=== PATIENT | female | born 1950 | race Caucasian/White ===

== ENCOUNTER → 2019-11-19 11:25 | Outpatient (BNVA) | payer MEDICARE, SELFPAY | PROVIDERS: Family Provider Nurse Practitioner Family; PCP Nurse Practitioner Family; Visit Provider Registered Nurse | DX: E03.9 Hypothyroidism, unspecified (principal); E11.8 Type 2 diabetes mellitus with unspecified complications | CPT/HCPCS: 83036; 84443 ==

== ENCOUNTER → 2020-05-16 10:18 | Outpatient (BNVA) | payer MEDICARE, SELFPAY | PROVIDERS: Family Provider Nurse Practitioner Family; PCP Nurse Practitioner Family; Visit Provider Registered Nurse | DX: E03.9 Hypothyroidism, unspecified (principal); E11.9 Type 2 diabetes mellitus without complications | CPT/HCPCS: 80061; 83036; 84443; 85025 ==

== ENCOUNTER → 2021-05-03 10:10 | Outpatient (BNVA) | payer MEDICARE, SELFPAY | PROVIDERS: Family Provider Nurse Practitioner Family; PCP Nurse Practitioner Family; Visit Provider Registered Nurse | DX: E11.9 Type 2 diabetes mellitus without complications (principal); E03.9 Hypothyroidism, unspecified | CPT/HCPCS: 80053; 80061; 83036; 85025 ==

== ENCOUNTER 2021-07-09 16:17 | Emergency (ER) | payer MEDICARE, SELFPAY ==
[2021-07-09 16:23] VITALS: BP 158/88; PULSE 87; RESP 18; TEMP 37.2; O2SAT 95; BMI 38.9
--- NOTE | 2021-07-09 16:26 | W.ED.WEAKNES ---
HPI - Weakness General: Chief complaint: General Medical Stated complaint: weakness Time Seen by Provider: 07/09/21 16:26 History of Present Illness: HPI Narrative: Ms. Wood is a 71-year-old lady with significant past medical history of hypertension, hyperlipidemia, thyroid disorder, CHF, diabetes who presents emergency department due to generalized fatigue and diarrhea. Symptom onset started with a sore throat and mild cough approximately 3 weeks ago. This resolved however she has continued to have fairly significant generalized malaise and weakness. She describes her symptoms as having lost my energy . The course has persisted. She has decreased p.o. intake and frequent episodes of watery diarrhea. No associated abdominal pain, she does have mild nausea, no vomiting, and fevers that typically occur in the evening respond to [id number]-yzvoyzs medications otherwise denies infectious symptoms. Symptoms are moderate to severe in intensity and have continued. Worse with exertion. No other specific exacerbating or alleviating factors. Review of Systems General: Reports: 10 or more systems reviewed and unremarkable except in HPI and below PFSH ED PFSH: Medical History Type 2 diabetes mellitus Social History Smoking and tobacco status: never smoked Physical Exam Narrative: EXAM NARRATIVE: GENERAL/CONSTITUTIONAL -mildly ill-appearing. No acute distress. Eyes - PERRL, no conjunctival injection ENMT - Atraumatic external nose and ears. Moist mucous membranes NECK - supple. trachea midline CARDIOVASCULAR - regular rate and rhythm. RESPIRATORY -clear to auscultation bilaterally. ABDOMEN/GI - Nontender/Nondistended. No tenderness to percussion or evidence of peritonitis MSK - Extremities without obvious deformity or tenderness to palpation SKIN - Warm, Dry NEURO - alert and appropriately oriented. strength and sensation intact. Moves all extremities equally. Course ED course: - Patient was seen and evaluated by me at bedside - Patient placed on cardiac monitors, IV access obtained - Initial evaluation notable for mildly ill appearance, no acute distress - Labs notable for no significant hematologic abnormality. Minimal metabolic abnormalities. - Imaging notable for no acute abnormality to explain patient's symptoms - Upon serial reexamination after treatment the patient was mildly improved - Based on patient history, evaluation, labs, and imaging as interpreted the most likely cause of the patient's condition is unclear, most likely post viral nature - The results of ED evaluation were discussed with the patient including prescriptions and/or symptomatic cares (if applicable) including appropriate and responsible use, followup plan, and return precautions. The patient verbalized understanding and felt safe for discharge. - Patient discharged in satisfactory condition. Vital Signs: Vital signs: Vital Signs Temperature 98.9 F 07/09/21 16:23 Pulse Rate 78 07/09/21 18:07 Respiratory Rate 18 07/09/21 16:23 Blood Pressure 180/85 07/09/21 18:07 Pulse Oximetry 97 07/09/21 18:07 MDM - Weakness Medical Records: Attestation: I reviewed the patient's medical records. Lab Data: Attestation: I reviewed the patient's lab results. Labs: Lab Results 07/09/21 07/09/21 07/09/21 17:30 17:30 17:30 WBC 7.8 10^3/uL 10^3/ uL (4.0-10.0) RBC 4.88 10^6/uL 10^6 /uL (4.1-5.3) Hgb 14.9 g/dL g/dL (11.5-15.3) Hct 43.5 % % (37.0-47.0) MCV 89.1 fl fl (81-99) MCH 30.5 pg pg (28.0-34.0) MCHC 34.3 g/dL g/dL (30.0-36.0) RDW 12.9 % % (12.1-15.1) Plt Count 202 10^3/cmm 10^3 /cmm (130-400) MPV 10.9 fL H fL (7.4-10.4) Neut % (Auto) 79.0 % % Lymph % (Auto) 12.6 % % Sunflower % (Auto) 7.3 % % Eos % (Auto) 0.4 % % Baso % (Auto) 0.3 % % Neut # (Auto) 6.16 10^3/uL 10^3 /uL (1.8-7.7) Lymph # (Auto) 1.0 10^3/uL 10^3/ uL (0.8-4.8) Sunflower # (Auto) 0.6 10^3/uL 10^3/ uL (0.2-0.9) Eos # (Auto) 0.0 10^3/uL 10^3/ uL (0.0-0.8) Baso # (Auto) 0.0 10^3/uL 10^3/ uL (0.0-0.1) Nucleated RBC % (a uto) 0 % % Nucleated RBCs # 0.0 /100WBC /100W BC Sodium 140 mmol/L mmol/L (136-145) Potassium 4.7 mmol/L mmol/L (3.5-5.1) Chloride 105 mmol/L mmol/L (98-107) Carbon Dioxide 19 mmol/L L mmol/ L (22-29) Anion Gap 20.7 H (5-19) BUN 12 mg/dL mg/dL (8-23) Creatinine 0.5 mg/dL mg/dL (0.5-0.9) GFR Calculation Not Reportable Glucose 193 mg/dL H mg/dL (65-115) POC Glucose Calculated Osmolal ity 295 mOsm/kg mOsm/ kg (285-295) Calcium 8.3 mg/dL L mg/dL (8.5-10.5) Total Bilirubin 0.3 mg/dL mg/dL (0.15-1.2) AST 30 U/L U/L (0-32) ALT 32 U/L U/L (0-33) Alkaline Phosphata se 91 IU/L IU/L (35-105) Troponin T Baselin e 7 ng/L ng/L (0-10) Troponin T 120 Min [place] Troponin T NT-Pro-B Natriuret Pep 202 pg/mL H pg/mL (0-125) Total Protein 6.7 g/dL g/dL (6.6-8.7) Albumin 3.7 g/dL g/dL (3.5-5.2) Globulin 3.0 g/dL g/dL (1.3-4.6) TSH 3.11 uIU/mL uIU/m L (0.27-4.20) Urine Color Urine Appearance Urine pH Ur Specific Gravit y Urine Protein Urine Glucose (UA) Urine Ketones Urine Blood Urine Nitrate Urine Bilirubin Urine Urobilinogen Ur Leukocyte Flower ase 07/09/21 07/09/21 07/09/21 17:34 18:35 19:20 WBC RBC Hgb Hct MCV MCH MCHC RDW Plt Count MPV Neut % (Auto) Lymph % (Auto) Sunflower % (Auto) Eos % (Auto) Baso % (Auto) Neut # (Auto) Lymph # (Auto) Sunflower # (Auto) Eos # (Auto) Baso # (Auto) Nucleated RBC % (a uto) Nucleated RBCs # Sodium Potassium Chloride Carbon Dioxide Anion Gap BUN Creatinine GFR Calculation Glucose POC Glucose 190 mg/dL H mg/dL (70-110) Calculated Osmolal ity Calcium Total Bilirubin AST ALT Alkaline Phosphata se Troponin T Baselin e Troponin T 120 Min [place] 7.18 ng/L ng/L (0-10) Delta Troponin T 0.18 ABS# ABS# (0-10) NT-Pro-B Natriuret Pep Total Protein Albumin Globulin TSH Urine Color Yellow (Yellow) Urine Appearance Clear (CLEAR) Urine pH 5 (5-7) Ur Specific Gravit y 1.010 (1.005-1.030) Urine Protein Neg (Negative) Urine Glucose (UA) Norm (Normal) Urine Ketones Negative (Negative) Urine Blood Neg (Negative) Urine Nitrate Negative (Negative) Urine Bilirubin Neg (Negative) Urine Urobilinogen Norm mg/dL mg/dL (Negative) Ur Leukocyte Flower ase Negative (Negative) EKG Data^: EKG 1: Attestation: I personally reviewed and interpreted this EKG as follows: EKG interpretation date: 07/09/21 EKG interpretation time: 17:35 Interpretation: Twelve-lead EKG shows a regular rhythm at a rate of seventy-eight. VT interval 216, QRS duration 77, QTc 423. Normal axis. Interpretation: Sinus rhythm, first-degree AV block Discharge Plan Discharge Patient Disposition: Home Clinical Impression: Malaise and fatigue, Diarrhea Condition: Stable Prescriptions: New Zofran 4 mg tablet 4 mg PO TID Qty: 14 RF: 0 No Action amlodipine 10 mg tablet See Rx Instructions .ROUTE .COMPLEX Qty: 90 RF: 0 glipizide 10 mg tablet 10 mg PO BID 90 Days Qty: 180 RF: 4 levothyroxine [Synthroid] 125 mcg tablet 125 mcg PO DAILY Qty: 90 RF: 4 metformin 1,000 mg tablet 1,000 mg PO BID 90 Days Qty: 180 RF: 4 metoprolol tartrate 100 mg tablet 100 mg PO DAILY Qty: 90 RF: 4 (DME) lancets [BD Ultra-Fine II Lancets] 30 gauge misc See Rx Instructions .ROUTE .MEDSUPPLY Qty: 100 RF: 6 (DME) OneTouch Ultra Blue Test Strip Strip See Rx Instructions .ROUTE .MEDSUPPLY Qty: 100 RF: 6 furosemide 20 mg tablet 20 mg PO DAILY 90 Days Qty: 90 RF: 3 Discharge Orders: Discharge ED (Routine); Ordered 07/09/21 Ordered By: Berny Michaud Discharge Diet: Usual diet Discharge Activity: Resume usual activity Patient Instructions: Acute Diarrhea (ED), Fatigue (ED) Activity Restrictions/Additional Instructions: Thank you for visiting the emergency department. You were seen and evaluated for decreased energy and diarrhea. The exact cause of your symptoms is unclear. Please follow-up with your primary care provider. Please return to the emergency department for anything that you are concerned about and feel needs emergency department evaluation. Incidental CT findings as noted: 1. Some interval increase in size of the fat containing mass within the right kidney now measuring 6.3 x 3.6 cm. This likely represents an angiomyolipoma. 2. Similar appearance of a 1.7 cm low-attenuation lesion within the uncinate process of the pancreas. This most likely represents a serous cystadenoma or side branch IPMN. Coding Level of Care Code ED Director Database for Manda Gutierrez
--- NOTE | 2021-07-09 16:55 | XRR_ITS ---
PROCEDURE INFORMATION: Exam: XR Chest Exam date and time: 07/09/2021 4:55 PM Age: 71 years old Clinical indication: Shortness of breath; Additional info: Fatigue, SOB TECHNIQUE: Imaging protocol: XR of the chest. Views: 1 view. COMPARISON: CT chest w con* [id number] 06/06/2018 9:06 PM FINDINGS: Lungs: Patulous areas of parenchymal scarring. No consolidation. Pleural spaces: No pleural effusion. No pneumothorax. Heart/Mediastinum: No cardiomegaly. Bones/joints: Moderate degenerative changes of the acromioclavicular joints. XR/XR chest 1V portable [id number] IMPRESSION: No acute findings. Radiation Dose CTDIVOL = (mGy): DLP = (mGy-cm)
--- NOTE | 2021-07-09 16:56 | ECG_ITS ---
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 Measurements Intervals [place] Rate: 78 P: 86 NE: 216 QRS: 29 QRSD: 77 T: 44 QT: 371 QTc: 423 Interpretive Statements SINUS RHYTHM WITH FIRST DEGREE AV BLOCK LOW QRS VOLTAGE IN PRECORDIAL LEADS [QRS DEFLECTION < 1.0 mV IN CHEST LEADS] Compared to ECG 06/08/2018 09:40:04 First degree AV block now present Low QRS voltage now present Electronically Signed On 07-09-2021 23:09:02 CDT by Josafat Boyce M.D. [id number] f
[2021-07-09] MEDS: sodium chloride 0.9% 500 ML IV (17:30)
[2021-07-09 17:37] VITALS: BP 151/78; PULSE 79; O2SAT 95
[2021-07-09 17:38] LABS: Glucose Point of Care 190 mg/dL (70-110)
[2021-07-09 17:39] LABS: Basophils % 0.3 %; Eosinophils % 0.4 %; Hematocrit 43.5 % (37.0-47.0); Hemoglobin 14.9 g/dL (11.5-15.3); Lymphocytes % 12.6 %; Mean Corpuscular HGB Conc 34.3 g/dL (30.0-36.0); Mean Corpuscular Hemoglobin 30.5 pg (28.0-34.0); Mean Corpuscular Volume 89.1 fl (81-99); Mean Platelet Volume 10.9 fL (7.4-10.4); Monocytes # 0.6 10^3/uL (0.2-0.9); Monocytes % 7.3 %; Neutrophils # 6.16 10^3/uL (1.8-7.7); Nucleated Red Blood Cells % 0 %; Platelet Count 202 10^3/cmm (130-400); Red Blood Count 4.88 10^6/uL (4.1-5.3); Red Cell Distribution Width 12.9 % (12.1-15.1); White Blood Count 7.8 10^3/uL (4.0-10.0)
[2021-07-09 18:07] VITALS: BP 180/85; PULSE 78; O2SAT 97
[2021-07-09 18:22] LABS: Troponin(5th) Baseline 7 ng/L (0-10)
[2021-07-09 18:26] LABS: Alanine Aminotransferase 32 U/L (0-33); Albumin Level 3.7 g/dL (3.5-5.2); Alkaline Phosphatase 91 IU/L (35-105); Blood Urea Nitrogen 12 mg/dL (8-23); Calcium 8.3 mg/dL (8.5-10.5); Carbon Dioxide 19 mmol/L (22-29); Chloride 105 mmol/L (98-107); Creatinine Clr Calc Pharmacy 72.6568; Glucose 193 mg/dL (65-115); NT Pro B Type Natriuretic Pept 202 pg/mL (0-125); Osmolality Calculated 295 mOsm/kg (285-295); Sodium 140 mmol/L (136-145); Thyroid Stimulating Hormone 3.11 uIU/mL (0.27-4.20); Total Bilirubin 0.3 mg/dL (0.15-1.2); Total Protein 6.7 g/dL (6.6-8.7)
[2021-07-09 18:27] LABS: Anion Gap 20.7 (5-19); Aspartate Amino Transferase 30 U/L (0-32); Potassium 4.7 mmol/L (3.5-5.1)
--- NOTE | 2021-07-09 18:29 | CTR_ITS ---
PROCEDURE INFORMATION: Exam: CT Abdomen And Pelvis With Contrast Exam date and time: 07/09/2021 6:29 PM Age: 71 years old Clinical indication: Fever and nausea and vomiting; Additional info: Diarrhea, abdominal pain TECHNIQUE: Imaging protocol: Computed tomography of the abdomen and pelvis with contrast. Radiation optimization: All CT scans at this facility use at least one of these dose optimization techniques: automated exposure control; mA and/or kV adjustment per patient size (includes targeted exams where dose is matched to clinical indication); or iterative reconstruction. Contrast material: OMNI 300; Contrast volume: 95 ml; Contrast route: INTRAVENOUS (IV); COMPARISON: CT abdomen pelvis w con* [id number] 07/10/2018 12:34 PM RADIATION DOSE METRICS: Total DLP (mGy-cm): 1635.91 FINDINGS: Liver: Scattered lobulated low-attenuation lesions throughout the liver are again noted. Most measure simple fluid are compatible cysts. One of the low-attenuation lesions demonstrates increased attenuation in segment 7/8 measuring 2.2 cm series 2, image 11. This is unchanged from prior examination in 2018 and is therefore likely a mildly complicated cyst. Gallbladder and bile ducts: Normal. No calcified stones. No ductal dilation. Pancreas: Redemonstration of ill-defined low-attenuation lesion in the uncinate process measuring 1.7 cm series 2, image 30. This is unchanged from prior study. No pancreatic ductal dilation. Spleen: Normal. No splenomegaly. Adrenal glands: Normal. No mass. Kidneys and ureters: Some interval increase in size of a fat containing mass originating off of the anterior cortex of the right kidney measuring 6.3 x 3.6 cm (previously 4.6 x 2.8 cm). No evidence of rupture/adjacent hemoperitoneum. Scattered subcentimeter cysts are again noted within both kidneys. Stomach and bowel: No obstruction. A few scattered colonic diverticula without findings of acute diverticulitis. No mucosal thickening. Appendix: No evidence of appendicitis. Intraperitoneal space: Unremarkable. No free air. No significant fluid collection. Vasculature: Unremarkable. No abdominal aortic aneurysm. Lymph nodes: Unremarkable. No enlarged lymph nodes. Urinary bladder: Unremarkable as visualized. Reproductive: Unremarkable as visualized. Bones/joints: No acute fracture. Soft tissues: Unremarkable. CT/CT abdomen pelvis w con* [id number] IMPRESSION: 1. Some interval increase in size of the fat containing mass within the right kidney now measuring 6.3 x 3.6 cm. This likely represents an angiomyolipoma. 2. Similar appearance of a 1.7 cm low-attenuation lesion within the uncinate process of the pancreas. This most likely represents a serous cystadenoma or side branch IPMN. 3. Similar appearance of scattered cysts within the liver, some of which appear mildly complex. COMMENTS: Consistent with the [place] [employer]'s Incidental Findings Committee white paper (J Am Cristóbal Radiol 2018): Any incidental renal lesion less than 1 cm or classified as too small to characterize, or any incidental cystic renal lesion characterized as simple-appearing, is likely benign. No follow-up imaging is recommended for these lesions per consensus recommendations based on imaging criteria. Radiation Dose CTDIVOL = (mGy): DLP = 1635.91 (mGy-cm)
[2021-07-09 18:37] LABS: Add Urine Microscopic? NO; Charge for UA Resulting for Rev
[2021-07-09 18:43] LABS: Bilirubin Urine Neg (Negative); Blood Urine Neg (Negative); Glucose Urine UA Norm (Normal); Ketones Urine Negative (Negative); Leukocyte Esterase Urine Negative (Negative); Nitrate Urine Negative (Negative); Protein Urine Neg (Negative); Urine Appearance Clear (CLEAR); Urine Color Yellow (Yellow); Urobilinogen Urine Norm (Negative); pH Urine 5 (5-7)
[2021-07-09] MEDS: iohexol 300 mg/mL 100 mL Btl IV (18:46)
[2021-07-09 19:49] LABS: Troponin 5 2HR 7.18 ng/L (0-10); Troponin 5 2HR Delta 0.18 ABS# (0-10)
== END 2021-07-09 19:57 | disposition home or self-care (01) ==
PROVIDERS: Emergency Provider Emergency Medicine
DX: R53.81 Other malaise (principal); R53.83 Other fatigue; R19.7 Diarrhea, unspecified; Z79.84 Long term (current) use of oral hypoglycemic drugs; E11.9 Type 2 diabetes mellitus without complications; E78.5 Hyperlipidemia, unspecified; I11.0 Hypertensive heart disease with heart failure; I50.9 Heart failure, unspecified
CPT/HCPCS: 36415; 36416; 71045; 74177; 80053; 81003; 82962; 83880; 84443; 84484; 85025; 93005; 96360; 99284; J7040; Q9967

== ENCOUNTER → 2021-07-11 10:01 | Outpatient (BNVA) | payer MEDICARE, SELFPAY | PROVIDERS: Visit Provider Registered Nurse | DX: Z20.822 Contact with and (suspected) exposure to COVID-19 (principal); R19.7 Diarrhea, unspecified | CPT/HCPCS: 87493; 87506; 87635 ==

== ENCOUNTER → 2021-09-03 11:19 | Outpatient (BNVA) | payer MEDICARE, SELFPAY | PROVIDERS: Visit Provider Registered Nurse | DX: E11.9 Type 2 diabetes mellitus without complications (principal); I10 Essential (primary) hypertension; E55.9 Vitamin D deficiency, unspecified; E53.8 Deficiency of other specified B group vitamins; E03.9 Hypothyroidism, unspecified; U07.1 COVID-19; R06.00 Dyspnea, unspecified; M25.50 Pain in unspecified joint | CPT/HCPCS: 80053; 82306; 82607; 83036; 84443; 85025 ==

== ENCOUNTER → 2022-03-28 11:46 | Outpatient (BNVA) | payer MEDICARE, SELFPAY | PROVIDERS: Visit Provider Registered Nurse | DX: E11.9 Type 2 diabetes mellitus without complications (principal); I10 Essential (primary) hypertension; E78.5 Hyperlipidemia, unspecified; E03.9 Hypothyroidism, unspecified | CPT/HCPCS: 80053; 80061; 83036; 84443; 85025 ==

== ENCOUNTER → 2023-01-30 14:02 | Outpatient (BNVA) | payer MEDICARE, SELFPAY | PROVIDERS: PCP Registered Nurse; Visit Provider Registered Nurse | DX: E03.9 Hypothyroidism, unspecified; I10 Essential (primary) hypertension; R53.83 Other fatigue; R60.9 Edema, unspecified; E11.40 Type 2 diabetes mellitus with diabetic neuropathy, unspecified; E55.9 Vitamin D deficiency, unspecified | CPT/HCPCS: 80053; 80061; 82306; 82607; 83036; 84443; 85025 ==

== ENCOUNTER → 2023-04-22 12:00 | Outpatient (BNVA) | payer MEDICARE, SELFPAY | PROVIDERS: PCP Registered Nurse; Visit Provider Registered Nurse | DX: E11.9 Type 2 diabetes mellitus without complications (principal) | CPT/HCPCS: 83036; 85025 ==

== ENCOUNTER → 2023-07-14 14:46 | Outpatient (BNVA) | payer MEDICARE, SELFPAY | PROVIDERS: PCP Registered Nurse; Visit Provider Registered Nurse | DX: E11.9 Type 2 diabetes mellitus without complications (principal) | CPT/HCPCS: 83036 ==

== ENCOUNTER → 2023-11-05 11:03 | Outpatient (BNVA) | payer MEDICARE, SELFPAY | PROVIDERS: PCP Registered Nurse; Visit Provider Registered Nurse | DX: E11.9 Type 2 diabetes mellitus without complications (principal) | CPT/HCPCS: 83036 ==

== ENCOUNTER → 2024-01-27 16:15 | Outpatient (BNVA) | payer MEDICARE, SELFPAY | PROVIDERS: PCP Registered Nurse; Visit Provider Registered Nurse | DX: E11.9 Type 2 diabetes mellitus without complications (principal); E11.8 Type 2 diabetes mellitus with unspecified complications; E03.9 Hypothyroidism, unspecified | CPT/HCPCS: 80053; 83036; 85025 ==

== ENCOUNTER → 2024-01-30 14:24 | Outpatient (BNVA) | payer MEDICARE, SELFPAY | PROVIDERS: PCP Registered Nurse; Visit Provider Registered Nurse | DX: I50.9 Heart failure, unspecified (principal); R06.02 Shortness of breath; I50.813 Acute on chronic right heart failure; E11.9 Type 2 diabetes mellitus without complications | CPT/HCPCS: 93005 ==

== ENCOUNTER → 2024-02-02 10:51 | Outpatient (BNVA) | payer MEDICARE, SELFPAY | PROVIDERS: PCP Registered Nurse; Visit Provider Registered Nurse | DX: I50.9 Heart failure, unspecified (principal); E11.9 Type 2 diabetes mellitus without complications; R06.02 Shortness of breath; I10 Essential (primary) hypertension | CPT/HCPCS: 80048; 83880 ==

== ENCOUNTER 2024-02-20 05:44 | Outpatient (CLI) | payer MEDICARE, SELFPAY ==
--- NOTE | 2024-02-20 05:58 | USCV_ITS ---
Kate Wood Age: 73 Gender: F : 1950 Exam Date: 02/20/2024 06:19 Ordering Phys: Gutierrez Diaz SCIENTIFIC DIRECTOR Technologist: Romie Eckert Exam Location: [facility] [place] Indication: chf BP: 140 / 81 HR: 72 Rhythm: Sinus Technical Quality: Adequate MEASUREMENTS (Male / Female) Normal Values 2D ECHO LV Diastolic Diameter PLAX 4.2 cm 4.2 - 5.9 / 3.9 - 5.3 cm IVS Diastolic Thickness 0.9 cm 0.6 - 1.0 / 0.6 - 0.9 cm IVS Systolic Thickness 1.2 cm LVPW Diastolic Thickness 1.5 cm 0.6 - 1.0 / 0.6 - 0.9 cm LVPW Systolic Thickness 1.5 cm LVOT Diameter 2.0 cm LV Ejection Fraction 2D Teich 73.1 % LV Ejection Fraction MOD 2C 52.5 % LV Ejection Fraction 2C AL 54.8 % LA Diameter 3.4 cm RA Systolic Volume 4C AL 24.8 ml RA Systolic Volume 4C MOD 24.9 ml LA Sys Volume AL 30.2 cm cubed LA Sys Volume Index AL 14.0 cm cubed/m squared Aorta at Sinotubular Diameter 1.7 cm IVC Diameter 1.6 cm M-MODE LA Ao Ratio MM 1.1 AV Cusp Separation MM 1.2 cm DOPPLER AV Peak Velocity 164.3 cm/s LVOT Peak Velocity 99.0 cm/s AV Area Cont Eq vti 1.7 cm squared AV Area Cont Eq pk 1.9 cm squared MV Peak Velocity 96.0 cm/s MV Area PHT 4.5 cm squared Mitral E to A Ratio 0.8 TR Peak Velocity 223.0 cm/s TR Peak Gradient 19.9 mmHg TR Mean Velocity 176.0 cm/s TR Mean Gradient 13.5 mmHg TR Velocity Time Integral 51.2 cm PV Peak Velocity 92.5 cm/s RV Ejection Time 0.3 s FINDINGS Left Ventricle Normal left ventricular size and systolic function, EF 55% . Mild left ventricular hypertrophy. Grade I/IV diastolic dysfunction (abnormal relaxation filling pattern), normal to mildly elevated filling pressures. Right Ventricle The right ventricle is normal in size and function. Right Atrium The right atrium is normal in size. Left Atrium The left atrium is normal in size. Mitral Valve Moderate mitral annular calcification. Aortic Valve No gross abnormalities noted Tricuspid Valve Trace to mild tricuspid valve regurgitation. Estimated pulmonary artery peak systolic pressure 22 mmHg Pulmonic Valve No gross abnormalities noted Pericardium Normal pericardium without effusion. Aorta Normal ascending aorta dimension. IVC The inferior vena cava appears normal. CONCLUSIONS Normal left ventricular size and systolic function, EF 55% . Mild left ventricular hypertrophy. Grade I/IV diastolic dysfunction (abnormal relaxation filling pattern), normal to mildly elevated filling pressures. Moderate mitral annular calcification. Trace to mild tricuspid valve regurgitation. Estimated pulmonary artery peak systolic pressure 22 mmHg. There is no pericardial effusion. There are no intracardiac masses. Compared to the study from 06/07/2018, there may not be a significant change Dr Milagro Pardo MD FACC (Electronically Signed) Final Date: 21 Feb 2024 19:37 S
--- NOTE | 2024-02-20 06:41 | ECG_ITS ---
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 Interpretive Statements NAME OF STUDY: LEXISCAN SESTAMIBI STRESS TEST INDICATION: Shortness of Breath, PROCEDURE: At the baseline, the EKG revealed normal sinus rhythm with a poor R wave progression. Normal ST Ts.. The baseline heart was 75 bpm with a blood pressue of 143/75 mm of Hg Lexiscan was infused over a period of 20 seconds. A total of 0.4 milligrams of Lexiscan was infused. The stress phase was continued for a total of 5 minutes. Heart rate at the end of the stress phase was 93 bpm with a blood pressure 162/74 mm of Hg. The EKG at the peak infusion revealed no significant changes. Sestamibi was injected 20 seconds after the Lexiscan infusion. Heart rate at the end of the recovery phase was 88 bpm with a blood pressure of 154/71 mm of Hg. CONCLUSION: 1. No significant EKG changes with the LexiScan infusion 2. No LexiScan induced chest pain or cardiac arrhythmia 3. Normal blood pressure and heart rate response 4. Sestamibi/sestamibi perfusion scan pending; see separate report. Electronically Signed On 02-23-2024 22:54:13 CDT by Milagro Pardo M.D. [id number]
--- NOTE | 2024-02-20 06:41 | NMCV_ITS ---
NM opal perf SPECT r/s* [id number] Kate Wood Age: 73 Gender: F : 1950 Exam Date: 02/20/2024 06:41 Ordering Phys: Gutierrez Diaz CRYPTOZOOLOGIST Technologist: CLEOPATRA Grande Exam Location: [facility] Indications: SHORTNESS OF BREATH STRESS TEST Please see separate stress test report in [facility] for full findings IMAGE PROTOCOL Rest/Stress 1 Lexiscan Day Radiopharmaceutical Dose (mCi) Administration Site Administered by Rest: Tc-99m 10.8 IV CLEOPATRA Bautista Sestamibi Stress:Tc-99m 33.0 IV CLEOPATRA Bautista Sestamibi Rest: 20-Feb-2024 60 Discovery 630 Stress: 20-Feb-2024 30 Discovery 630 0.4mg Lexiscan. Supine position only as patient was unable to lay prone. SPECT RESULTS Technical Quality: Excellent Raw Data Analysis: Normal Image Corrections: No attenuation or motion correction applied Summed Stress Score: 0 Summed Rest Score: 0 Summed Difference Score: 0 PERFUSION FINDINGS Uniform myocardial tracer uptake with no significant perfusion abnormalities FUNCTIONAL RESULTS (calculated via Gated SPECT) Stress Image LV EF (%): 83 Stress EDV (mL):46 TID: 0.95 Stress ESV (mL):8 FUNCTIONAL FINDINGS: Segmental wall motion analysis revealing no gross wall motion abnormalities IMPRESSIONS 1. Uniform myocardial tracer uptake with no significant perfusion abnormalities. 2. Normal LV ejection fraction of 83%. 3. LV wall motion analysis revealing no gross wall motion abnormalities. 4. Normal LV volume Low probability for coronary ischemia, based on the above findings Compared to the study from 07/21/2018, current study shows no evidence of ischemia Dr Milagro Pardo MD FACC (Electronically Signed) Final Date: 20 Feb 2024 10:53 S
[2024-02-20 07:51] VITALS: BMI 38.7
[2024-02-20 09:15] VITALS: BP 163/75; PULSE 97
== END 2024-02-20 05:45 | disposition home or self-care (01) ==
LOC: RAD 05:53 → CDL 06:39
PROVIDERS: PCP Registered Nurse; Visit Provider Registered Nurse
DX: I50.9 Heart failure, unspecified (principal)
CPT/HCPCS: 36415; 78452; 93017; 93306; 96374; A9500

== ENCOUNTER → 2024-02-24 13:58 | Outpatient (BNVA) | payer MEDICARE, SELFPAY | PROVIDERS: PCP Registered Nurse; Visit Provider Registered Nurse | DX: N39.0 Urinary tract infection, site not specified (principal); E03.9 Hypothyroidism, unspecified | CPT/HCPCS: 81000; 84443; 87086 ==

== ENCOUNTER → 2024-04-15 11:56 | Outpatient (BNVA) | payer MEDICARE, SELFPAY | PROVIDERS: PCP Registered Nurse; Visit Provider Nurse Practitioner Family | DX: L98.9 Disorder of the skin and subcutaneous tissue, unspecified (principal) | CPT/HCPCS: 88305 ==

== ENCOUNTER → 2024-04-29 14:47 | Outpatient (BNVA) | payer MEDICARE, SELFPAY | PROVIDERS: PCP Registered Nurse; Visit Provider Nurse Practitioner Family | DX: L98.0 Pyogenic granuloma (principal); L91.8 Other hypertrophic disorders of the skin; L82.1 Other seborrheic keratosis; L73.8 Other specified follicular disorders; D22.5 Melanocytic nevi of trunk | CPT/HCPCS: 17110; 99203 ==

== ENCOUNTER → 2024-07-21 15:01 | Outpatient (BNVA) | payer MEDICARE, SELFPAY | PROVIDERS: PCP Registered Nurse; Visit Provider Registered Nurse | DX: E11.9 Type 2 diabetes mellitus without complications (principal) | CPT/HCPCS: 80048; 83036 ==

== ENCOUNTER → 2024-08-10 15:23 | Outpatient (BNVA) | payer MEDICARE, SELFPAY | PROVIDERS: PCP Registered Nurse; Visit Provider Nurse Practitioner Family | DX: L91.8 Other hypertrophic disorders of the skin (principal); L40.0 Psoriasis vulgaris; L98.0 Pyogenic granuloma; L82.1 Other seborrheic keratosis; L73.8 Other specified follicular disorders; D22.5 Melanocytic nevi of trunk | CPT/HCPCS: 17110; 99214 ==

== ENCOUNTER → 2024-11-23 14:40 | Outpatient (BNVA) | payer MEDICARE, SELFPAY | PROVIDERS: PCP Registered Nurse; Visit Provider Registered Nurse | DX: E11.9 Type 2 diabetes mellitus without complications (principal); E11.43 Type 2 diabetes mellitus with diabetic autonomic (poly)neuropathy | CPT/HCPCS: 80053; 83036 ==

== ENCOUNTER 2024-12-16 14:49 | Outpatient (CLI) | payer MEDICARE, SELFPAY | END 2024-12-16 14:50 | disposition home or self-care (01) | LOC: SLEEP 14:50 | PROVIDERS: PCP Registered Nurse; Visit Provider Registered Nurse | DX: R06.09 Other forms of dyspnea (principal); U09.9 Post COVID-19 condition, unspecified | CPT/HCPCS: 94762 ==

== ENCOUNTER → 2024-12-28 15:01 | Outpatient (BNVA) | payer MEDICARE, SELFPAY | PROVIDERS: PCP Registered Nurse; Referring Provider Registered Nurse; Visit Provider Psychiatry & Neurology Neurology | DX: G56.03 Carpal tunnel syndrome, bilateral upper limbs (principal) | CPT/HCPCS: 95911 ==

== ENCOUNTER → 2025-01-25 14:06 | Outpatient (BNVA) | payer MEDICARE, SELFPAY | PROVIDERS: PCP Registered Nurse; Visit Provider Physician Assistant | DX: G56.03 Carpal tunnel syndrome, bilateral upper limbs (principal) | CPT/HCPCS: 73110; 99204 ==

== ENCOUNTER → 2025-02-23 11:25 | Outpatient (BNVA) | payer MEDICARE, SELFPAY | PROVIDERS: PCP Registered Nurse; Visit Provider Registered Nurse | DX: E11.9 Type 2 diabetes mellitus without complications (principal); E11.43 Type 2 diabetes mellitus with diabetic autonomic (poly)neuropathy | CPT/HCPCS: 83036 ==

== ENCOUNTER 2025-02-24 07:03 | Day surgery (SDC) | payer MEDICARE, SELFPAY ==
[2025-02-24] VITALS (12 sets, daily range): BP systolic 99–153; BP diastolic 52–113; PULSE 60–73; RESP 16–18; TEMP 36.1–36.7; O2SAT 93–98; BMI 38.0
--- NOTE | 2025-02-24 07:30 | W.PM.OPSUD ---
Surgery/Procedure H&P Update DATE OF PROCEDURE: February 24, 2025 DATE H&P PERFORMED: 01/25/25 H&P UPDATE INFORMATION: I have reviewed H&P completed within last 30 days, I have examined patient prior to procedure and No changes to prior documentation PREOP DIAGNOSIS: Right carpal tunnel syndrome, right cubital tunnel PRIMARY INDICATION FOR PROCEDURE: Right carpal tunnel syndrome, right cubital tunnel syndrome PLANNED PROCEDURE: Operation Date: 02/24/25 09:00 Proposed Procedures p Carpal Tunnel Release(Right) - DO olesya Manzo Cubital Tunnel Release(Right) - DO olesya Manzo Ulnar Nerve Transposition(Right) - Jimenez Ramirez DO
[2025-02-24 08:01] LABS: Glucose Point of Care 299 mg/dL (70-110)
[2025-02-24] MEDS: sodium chloride 0.9% 1,000 ML 30 ML IV (08:08)
[2025-02-24] MEDS: ketorolac 30 mg/mL INJ IVP (08:08)
[2025-02-24] MEDS: acetaminophen 1,000 MG/100 ML PIGGYBACK 400 MG IV (08:09)
--- NOTE | 2025-02-24 08:10 | ANES.PREANE2 ---
Pre-Anesthetic Assessment Height/Weight: Height 1.6 m Weight 97.522 kg Temp Pulse Resp BP Pulse Ox O2 Del Method 97.6 F 60 16 144/75 98 Room Air 02/24/25 07:41 02/24/25 07:41 02/24/25 07:41 02/24/25 07:41 02/24/25 07:41 02/24/25 07:43 Preop Diagnosis: Right carpal tunnel syndrome, right cubital tunnel Operation Date: 02/24/25 09:00 Proposed Procedures p Carpal Tunnel Release(Right) - Jimenez Ashley, DO s Cubital Tunnel Release(Right) - Jimenez [place], DO s Ulnar Nerve Transposition(Right) - Jimenez Ashley, DO Familial anesthetic complications: None Was Beta Guicho taken within 24 hours: N/A Was Clonidine taken within 24 hours: N/A Last intake: Intake Last Liquid Date 02/23/25 Last Liquid Time 22:00 Last Solid Date 02/23/25 Last Solid Time 19:00 Social No alcohol and No tobacco Airway Mallampati: Class I Dentition: false Pulmonary Asthma CV/HEM Hypertension Metabolic Diabetes Mellitus and Thyroid Disease Anesthetic Plan ASA status: 3 Anesthesia: General and Regional (specify below) Risk of > 500 ml blood loss (7ml/kg in children): No Medications/Allergies Home Medications ?Medication ?Instructions ?Recorded ?Confirmed ?Last Taken ?Type cholecalciferol (vitamin D3) 250 500 mcg PO BID 12/31/22 02/23/25 02/23/25 History mcg (10,000 unit) capsule garlic 1,000 mg capsule 1,000 mg PO BID 12/31/22 02/23/25 02/23/25 History Upright walker #1 ea 01/01/23 01/25/25 Unknown Rx albuterol sulfate 90 mcg/actuation 1 inh inhalation QID PRN shortness 01/27/24 02/23/25 Unknown Rx aerosol inhaler (ProAir HFA) of breath or wheezing #8.5 grams lancets 30 gauge #100 ea 11/23/24 01/25/25 Unknown Rx potassium chloride 20 mEq 20 meq PO DAILY 90 days #90 tabs 11/23/24 02/23/25 02/23/25 Rx tablet,extended release sitagliptin phosphate 50 mg tablet 50 mg PO DAILY E11.9 90 days #90 02/02/23/25 02/23/25 Rx tabs budesonide-formoterol HFA 160 2 inh inhalation BID 30 days #10.2 11/25/24 02/23/25 02/23/25 Rx mcg-4.5 mcg/actuation aerosol grams inhaler (Symbicort) gabapentin 100 mg capsule 100 mg PO TID 90 days #270 caps 12/03/24 02/23/25 02/23/25 Rx tramadol 50 mg tablet 50 mg PO BID PRN pain 7 days #14 01/18/25 02/23/25 Unknown Rx tabs blood sugar diagnostic (OneTouch #100 ea 02/01/25 Unknown Rx Ultra Test strips) amlodipine 10 mg tablet 10 mg PO DAILY 02/23/25 02/23/25 02/23/25 History furosemide 40 mg tablet 40 mg PO DAILY 02/23/25 02/23/25 02/23/25 History glipizide 10 mg tablet 10 mg PO BID 02/23/25 02/23/25 02/23/25 History levothyroxine 125 mcg tablet 125 mcg PO DAILY 02/23/25 02/23/25 02/23/25 History metoprolol tartrate 100 mg tablet 100 mg PO DAILY 02/23/25 02/23/25 02/23/25 History olmesartan 40 mg tablet 40 mg PO DAILY 02/23/25 02/23/25 02/23/25 History hydrocodone 5 mg-acetaminophen 325 1 tab PO Q6H PRN pain 5 days #20 02/24/25 Unknown Rx mg tablet tabs Allergies Allergy/AdvReac Type Severity Reaction Status Date / Time No Known Allergies Allergy Verified 02/23/25 13:51 Current Medications Generic Name Dose Route Start Last Admin Trade Name Freq PRN Reason Stop Dose Admin Sodium Chloride 1,000 mls @ 30 mls/hr 02/23/25 13:45 02/24/25 08:08 Sodium Chloride 0.9% IV 02/24/25 13:44 30 mls/hr .Q24H JESUS Administration PFSH Anesthesia Medical History Chronic diarrhea Type 2 diabetes mellitus Social History Smoking and tobacco/nicotine status: former use of tobacco/nicotine Alcohol intake: never Substance/Drug Use: never Adopted: No Caregiver/support person: No Lives independently: No Household members: spouse Sexually active: Yes Do you think of yourself as: Straight/Heterosexual Current gender identity: Female Data Anesthesia Cardiac Studies: Echocardiogram 02/20/24 Sestamibi Stress Test (Cardiology) 02/20/24 Anesthesia Procedures Nerve Block Nerve Block 1: Main Anesthesia: general anesthesia Time Out Performed: Yes Consent: requested by attending/covering physician Nerve block location: supraclavicular (R) Anesthesia monitors applied: pulse oximetry, EKG, BP cuff and oxygen Nerve block position: semi sitting Anesthetic Used: ropivicaine 0.5% (30 ml) and with decadron (4 mg) Ultrasound used to: recognize landmarks, visualize and ID brachial plexus and in supraclavicular region Nerve Stimulator Used?: No Interscalene/Femoral BLK: 4 stimuplex 21 g needle used for position and inplane approach, visualize local anesthetic spread and no vascular puncture identified Injection: neg aspiration of heme Patient Tolerated Procedure: well and no complications Complications: none
[2025-02-24] MEDS: insulin regular-human 100 units/1 mL 10 UNIT IVP (08:35)
[2025-02-24] MEDS: ceFAZolin 2,000 MG in sodium chloride 0.9% (plus) 50 ML 100 MG IV (08:39)
--- NOTE | 2025-02-24 09:33 | W.PM.BPON ---
Date of Procedure: 02/24/2025 Surgeon: Jimenez Ramirez DO Gas Scrubber Operator(s): Salvador Ramirez PA-C Procedure(s) performed: Right carpal tunnel release Right cubital tunnel release (ulnar nerve decompression at the elbow) Findings of the procedure(s): Patient found to have right carpal tunnel syndrome right cubital tunnel syndrome underwent procedure as planned without issues or complications. Patient's elbow was taken through range of motion and the nerve stayed in good position. As result nerve was released in situ and no transposition was performed. Estimated blood loss: 5 mL Specimen(s) removed: None Post-operative diagnosis: Right carpal tunnel syndrome, right cubital tunnel syndrome
--- NOTE | 2025-02-24 09:35 | PM.OP ---
Operative Report Date of procedure: February 24, 2025 Surgeon: Jimenez Ramirez DO Senior Software Qa Analyst: Salvador Ramirez PA-C: PA was necessary for assistance in this case with hand positioning to execute the procedure, retraction and protection of neurovascular structures as well as to assist with wound closure and dressing application. Procedure: Preoperative diagnosis: Right carpal tunnel syndrome Right cubital tunnel syndrome Postop Diagnosis: Same Procedure done: Right carpal tunnel release Right?cubital tunnel tunnel release (ulnar nerve decompression at elbow) Surgeon: Jimenez Ramirez DO Estimated blood loss: 5 mL Tourniquet? 17 minutes IV fluids: 900 mL Complications: None Findings: See operative report narrative Condition: stable Disposition: same day Brief History: Patient's been seen and worked up in the outpatient setting and findings consistent with preoperative diagnosis.? Patient has right carpal tunnel syndrome as well as right?cubital tunnel syndrome which has been worked up in the outpatient setting has physical exam findings consistent with this as well as confirmatory nerve conduction/EMG nerve conduction study consistent with diagnosis of carpal tunnel syndrome and consistent physical exam findings for cubital tunnel syndrome..? Patient's failed conservative treatment.? As result through shared decision making agreed to proceed with? right carpal tunnel and right?cubital tunnel release with possible nerve transposition . we talked about treatment options as far as nonoperative and operative intervention.? Understands risk benefits complication alternatives surgical nonsurgical treatment options.? Understanding risks pt agrees to proceed with surgical intervention today.? Consent obtained in preoperative holding area. Procedure: Patient seen evaluate in the preoperative holding area.? Consent was reviewed and signed with patient.? Correct extremity marked.? Patient seen evaluated by anesthesia department once cleared for surgery was then taken back to the operative suite placed in supine position all bony prominences well-padded patient properly secured to bed.? right upper extremity placed onto armboard.? Nonsterile tourniquet applied right upper arm.? Patient then underwent anesthesia per the anesthesia department.? Patient's right upper extremity was then prepped and draped in standard orthopedic fashion.? Final timeout performed.? Patient received appropriate preoperative antibiotics. Esmarch was used exsanguinate the right upper extremity.? Tourniquet was insufflated to 250 mmHg. I started with the carpal tunnel release first.? I made a standard open carpal tunnel release starting with the distal most extent in the palm at the Vyas's cardinal line and the incision line was made in line with the fourth ray and ended just distal to the wrist crease.? Sharp scalpel incision was made through skin and subcutaneous tissue I then utilizing self retainer then began to dissect with dissection scissors split longitudinally the palmar fascia.? Next I then utilizing my shipping and receiving assistant Yessenia retractors subsequently utilizing scalpel feathered through the palmaris brevis as well as through the transverse carpal ligament distally.? Once I encountered the floor of the transverse carpal ligament and entered into the carpal tunnel I then switched to dissection scissors.? Carefully released the distal extent of the transverse carpal ligament to the palmar fat.? Care was to protect the recurrent branch and not injured this during this part of the case.? Next I then placed a [place] underneath the transverse carpal ligament proximally to protect the nerve in the carpal tunnel contents.? And then I subsequently under loupe magnification utilize my dissection scissors to release the transverse carpal ligament into the antebrachial fascia under direct visualization with care to keep my scissors with a curved ulnarly away from the palmar cutaneous branch.? The transverse carpal was then completely decompressed proximally and a [place] was then placed both distally and proximally throughout the carpal tunnel and had complete decompression of the nerve.? The nerve did appear to have hourglass shape as it went through the carpal tunnel.? With significant irritation noted around the nerve.? No masses were noted within the contents of the carpal tunnel.? This completed the carpal tunnel release and then I subsequently irrigated the wound bed and placed a wet Ray-Karoline into the incision for later closure. Next marked out the landmarks of the right elbow of the medial epicondyle and olecranon and made a curvilinear incision following the course of the ulnar nerve at the medial aspect of the elbow.? Sharp scalpel incision was made through skin and subcutaneous tissue.? Next I switched to Littler dissection scissors and spread in plane of the medial antebrachial cutaneous nerve branching which was protected throughout this part of the dissection.? Then I directly came down over the fascia and identified the 2 heads of the FCU fascia and split this right in the middle and subsequently identified my ulnar nerve distally.? This was then completely released distally under direct visualization and loupe magnification.? Once the nerve was then identified I then subsequently tracked this proximally and released this through Molina's ligament as well as complete decompression of the nerve proximally all the way past the intermuscular septum.? This was released to its entirety with blunt dissection proximally to confirm no tight bands or entrapment along the ulnar nerve proximally. The nerve was completely released and decompressed both proximally and distally.? Ulnar nerve neurolysis performed and completed both proximally and distally with dissection scissors.? I then took the elbow through range of motion and there was no instability/ subluxating of the ulnar nerve.? This completed?cubital tunnel release.? ?Next the wound bed was thoroughly irrigated.? Tourniquet was deflated.? Hemostasis was satisfactory at the?cubital tunnel release surgery site. I then inspected the carpal tunnel incision and this was found to have satisfactory hemostasis and all this was maintained through bipolar electrocautery.? At this point time I sequentially closed?cubital tunnel site with 3-0 Vicryl suture in a running horizontal mattress nylon stitch.? ? The carpal tunnel release surgery was then closed in standard interrupted mattress fashion.? Dressing was Xeroform 4 x 4's ABD Curlex soft roll and an Francisco wrap has a bulky soft dressing. Patient was then awakened from anesthesia and taken to PACU in stable condition. Disposition: Patient taken to PACU in stable condition recovering well.? Patient will receive appropriate discharge instructions as well as pain medication postoperatively.? We will follow-up with me in the office in 2 weeks.? Patient understands agrees with current plan.? All questions answered.? Patient understands if any questions or concerns and contact the office for follow-up appointment.
--- NOTE | 2025-02-24 10:16 | PM.PACU ---
PACU note Narrative: Patient is a 74-year-old female just underwent a right carpal tunnel and right cubital tunnel release. Patient transferred to PACU in stable condition. Pain is well controlled. Dressing on hand is dry and in place. Patient's fingers are warm and well-perfused. Patient can wiggle fingers. normal cap refill under 2 seconds. Sensation to fingers intact. Exam: awake Disposition: discharged
[2025-02-24] MEDS: ondansetron 2 mg/ML SDV 2 mL 4 MG IVP ×2 (10:21→11:13)
--- NOTE | 2025-02-24 10:35 | ANE.PACU2 ---
Inpatient post-anesthesia follow up: Airway intact: Yes Vital signs: Temperature 98.0 F Pulse Rate 67 Respiratory Rate 16 Blood Pressure 128/66 Pulse Oximetry 96 Oxygen Delivery Me thod Room Air Oxygen Flow Rate 8 Fraction of Inspir ed Oxygen Hydration adequate: Yes Nausea and vomiting: No Pain level: 1 Mental status: Baseline
[2025-02-24 11:17] LABS: Glucose Point of Care 129 mg/dL (70-110)
== END 2025-02-24 12:10 | disposition home or self-care (01) ==
PROVIDERS: PCP Registered Nurse; Visit Provider Student in an Organized Health Care Education/Training Program
PROC: (CPT 64721; principal; 2025-02-24 09:00)
PROC: (CPT 64718; 2025-02-24 09:00)
DX: G56.01 Carpal tunnel syndrome, right upper limb (principal); G56.21 Lesion of ulnar nerve, right upper limb; I10 Essential (primary) hypertension; E11.9 Type 2 diabetes mellitus without complications; E07.9 Disorder of thyroid, unspecified; Z87.891 Personal history of nicotine dependence
CPT/HCPCS: 64718; 64721; 36416; 82962; J0131; J0690; J1100; J1815; J1885; J2371; J2405; J2704; J2795; J3010; J3490; J7030; J9999

== ENCOUNTER → 2025-03-08 13:24 | Outpatient (BNVA) | payer MEDICARE, SELFPAY | PROVIDERS: PCP Registered Nurse; Visit Provider Physician Assistant | DX: Z98.890 Other specified postprocedural states (principal) | CPT/HCPCS: 99024 ==

== ENCOUNTER → 2025-04-19 13:15 | Outpatient (BNVA) | payer MEDICARE, SELFPAY | PROVIDERS: PCP Registered Nurse; Visit Provider Physician Assistant | DX: Z98.890 Other specified postprocedural states (principal) | CPT/HCPCS: 99024 ==

== ENCOUNTER 2025-05-11 16:43 | Emergency (ER) | payer MEDICARE, SELFPAY ==
[2025-05-11 16:46] VITALS: BP 171/52; PULSE 69; TEMP 36.7; O2SAT 96
--- NOTE | 2025-05-11 16:47 | XRR_ITS ---
PROCEDURE INFORMATION: Exam: XR Chest Exam date and time: 05/11/2025 5:03 PM Age: 74 years old Clinical indication: Cardiovascular condition or disease; Congestive heart failure (chf); Cause unknown; Type unknown TECHNIQUE: Imaging protocol: Radiologic exam of the chest. Views: 1 view. COMPARISON: CR XR chest 2V* [id number] 01/30/2024 4:44 PM FINDINGS: Lungs: Unremarkable. No consolidation. Pleural spaces: Unremarkable. No pleural effusion. No pneumothorax. Heart/Mediastinum: Unremarkable. No cardiomegaly. Vasculature: Atherosclerotic aortic calcifications. Bones/joints: Unremarkable. XR/XR chest 1V portable [id number] IMPRESSION: No acute findings.
--- NOTE | 2025-05-11 16:52 | ECG_ITS ---
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
[2025-05-11 18:08] VITALS: BP 197/90; PULSE 68; O2SAT 99
--- NOTE | 2025-05-11 18:09 | ED_ITS ---
HPI - SOB/Dyspnea 2 General: Chief Complaint: Shortness of Breath/Dyspnea Stated Complaint: Dr Griffin needs fluid drained swelling all over Time Seen by Provider: 05/11/25 18:09 History of Present Illness: HPI Narrative: 74-year-old female with a history of typ e 2 diabetes, morbid obesity, congestive heart failure, hypothyroidism and hypertension who presents emergency room with worsening lower extremity swelling. She states this happened 1 time before. She has been taking her Lasix as instructed. No chest pain. She does have some exertional dyspnea and some orthopnea. She is not requiring any oxygen on presentation. She is hypertensive. Related Data Home Medications ?Medication ?Instructions ?Recorded ?Confirmed cholecalciferol (vitamin D3) 250 500 mcg PO BID 04/19/25 mcg (10,000 unit) capsule garlic 1,000 mg capsule 1,000 mg PO BID 12/31/22 furosemide 40 mg tablet 40 mg PO DAILY 02/23/2503/30 levothyroxine 125 mcg tablet 125 mcg PO DAILY 02/23/25 04/19/25 metoprolol tartrate 100 mg tablet 100 mg PO DAILY 01/2804/19/25 olmesartan 40 mg tablet 40 mg PO DAILY 02/23/2503/30 Previous Rx's ?Medication ?Instructions ?Recorded Upright walker #1 ea 01/01/23 albuterol sulfate 90 mcg/actuation 1 inh inhalation QI D PRN shortness 01/27/24 aerosol inhaler (ProAir HFA) of breath or wheezing #8. 5 grams lancets 30 gauge #100 ea 11/23/24 potassium chloride 20 mEq 20 meq PO DAILY 90 days #90 tabs 11/23/24 tablet,extended release sitagliptin phosphate 50 mg tablet 50 mg PO DAILY E11. 9 90 days #90 11/23/24 tabs budesonide-formoterol HFA 160 2 inh inhalation BID 30 days #10.2 11/25/24 mcg-4.5 mcg/actuation aerosol grams inhaler (Symbicort) gabapentin 100 mg capsule 100 mg PO TID 90 days #270 c aps 12/03/24 tramadol 50 mg tablet 50 mg PO BID PRN pain 7 days #14 01/18/25 tabs insulin glargine 100 unit/mL (3 20 unit (0.2 mL) SUBCU T QAM 30 03/10/25 mL) subcutaneous pen (Lantus days #6 mL Solostar U-100 Insulin) amlodipine 10 mg tablet See Rx Instructions .Route 0 05/03/25 .COMPLEX #90 tabs glipizide 10 mg tablet See Rx Instructions .Route 0 05/09/25 .COMPLEX #180 tabs blood sugar diagnostic (OneTouch #100 ea 05/11/25 Ultra Test strips) furosemide 40 mg tablet (Lasix) 80 mg (2 x 40 mg) PO Q AM 5 days 05/11/25 #10 tabs Allergies Allergy/AdvReac Type Severity Reaction Status Date / Time No Known Allergies Allergy Verified 05/11/25 16:56 Review of Systems 2 Narrative: Constitutional symptoms: Negative except as documented in HPI. Skin symptoms: Negative except as documented in HPI. Eye symptoms: Negative except as documented in HPI. ENMT symptoms: Negative except as documented in HPI. Respiratory symptoms: Negative except as documented in HPI. Cardiovascular symptoms: Negative except as documented in HPI. Gastrointestinal symptoms: Negative except as documented in HPI. Genitourinary symptoms: Negative except as documented in HPI. Musculoskeletal symptoms: Negative except as documented in HPI. Neurologic symptoms: Negative except as documented in HPI. Psychiatric symptoms: Negative except as documented in HPI. Endocrine symptoms: Negative except as documented in HPI. PFSH ED 2 PFSH: Medical History (Updated 05/11/25 @ 19:36 by Danlele Torres MD) Chronic diarrhea Type 2 diabetes mellitus Social History Smoking and tobacco/nicotine status: former use of tobacco/nicotine Alcohol intake: never Substance/Drug Use: never Adopted: No Caregiver/support person: No Lives independently: No Household members: spouse Sexually active: Yes Do you think of yourself as: Straight/Heterosexual Current gender identity: Female Physical Exam 2 Narrative: EXAM NARRATIVE: General: Alert, no acute distress. Skin: Warm, dry. Head: Normocephalic, atraumatic. Neck: Supple, trachea midline. Eye: Extraocular movements are intact. Ears, nose, mouth and throat: mucosa moist. Cardiovascular: Regular, Normal peripheral perfusion. Bilateral lower extremity edema Respiratory: Lungs are clear to auscultation, respirations are non-labored, breath sounds are equal, Symmetrical chest wall expansion. Gastrointestinal: Soft, Nontender, Non distended Musculoskeletal: Normal ROM, no deformity. Neurological: Alert and oriented, No focal neurological deficit observed. Psychiatric: Cooperative, appropriate mood & affect. Course 2 Vital Signs: Vital signs: Vital Signs Temperature 98.0 F 05/11/25 16:46 Pulse Rate 65 05/11/25 19:00 Blood Pressure 197/90 05/11/25 18:08 Pulse Oximetry 94 05/11/25 19:00 Oxygen Delivery Me thod Room Air 05/11/25 19:00 MDM - SOB/Dyspnea Medical Decision Making Medical decision making: Differential diagnosis including but not limited to and based on the above HPI, review of systems and physical exam: for patient with edema: Congestive heart failure. Kidney failure. DVT / Pulmonary embolism. Protein malnutrition. Cirrhosis. Orders placed to evaluate differential diagnosis based on the above differential, HPI and physical exam Chest x-ray: No acute process. No infiltrate. No pneumothorax. This was reviewed and interpreted by myself the emergency room physician. I also reviewed the radiology report. Lab Review: Laboratory results were reviewed and interpreted by myself the emergency room physician. No leukocytosis. No anemia. BUN is a little elevated at 33 but creatinine is normal at 0.9. Glucose is elevated at 276. Chest x-ray: No acute process. No infiltrate. No pneumothorax. This was reviewed and interpreted by myself the emergency room physician. I also reviewed the radiology report. I reviewed the patient's medical record. 74-year-old female with a history of type 2 diabetes, morbid obesity, congestive heart failure, hypothyroidism and hypertension Reexamination: Patient remained stable. No increased work of breathing. No altered mental status. No focal motor deficits. No oxygen requirements. Assessment and plan: Congestive heart failure Edema ? 80 mg IV Lasix in the emergency room. - Discharged home - Discussed plan with patient. Answered any questions. - Evaluation and treatment of this problem were appropriate in the emergency setting. Lab Data 05/11/25 18:10 05/11/25 18:10 Labs/Radiology: Radiology Impressions Chest X-Ray 05/11/25 16:47 IMPRESSION: No acute findings. Laboratory Results WBC 9.11 10^3/uL (3.29-11.43) 05/11/25 18:10 RBC 4.50 10^6/uL (3.85-5.65) 05/11/25 18:10 Hgb 14.20 g/dL (11.27-16.99) 05/11/25 18:10 Hct 39.1 % (36-47) 05/11/25 18:10 MCV 86.9 fl (85-98) 05/11/25 18:10 MCH 31.6 pg (27-33) 05/11/25 18:10 MCHC 36.3 g/dL (30-55) 05/11/25 18:10 RDW 12.7 % (12.1-15.1) 05/11/25 18:10 Plt Count 274 10^3/cmm (157-399) 05/11/25 18:10 MPV 10.0 fL (7.4-10.4) 05/11/25 18:10 Neut % (Auto) 71.8 % 05/11/25 18:10 Lymph % (Auto) 19.8 % 05/11/25 18:10 Bollinger % (Auto) 6.6 % 05/11/25 18:10 Eos % (Auto) 1.1 % 05/11/25 18:10 Baso % (Auto) 0.5 % 05/11/25 18:10 Neut # (Auto) 6.54 10^3/uL (1.8-7.7) 05/11/25 18:10 Lymph # (Auto) 1.8 10^3/uL (0.8-4.8) 05/11/25 18:10 Bollinger # (Auto) 0.6 10^3/uL (0.2-0.9) 05/11/25 18:10 Eos # (Auto) 0.1 10^3/uL (0.0-0.8) 05/11/25 18:10 Baso # (Auto) 0.1 10^3/uL (0.0-0.1) 05/11/25 18:10 Nucleated RBC % (auto) 0 % 05/11/25 18:10 Nucleated RBCs # 0.0 /100WBC 05/11/25 18:10 Sodium 140 mmol/L (136-145) 05/11/25 18:10 Potassium 4.7 mmol/L (3.5-5.1) 05/11/25 18:10 Chloride 99 mmol/L (98-107) 05/11/25 18:10 Carbon Dioxide 26 mmol/L (22-29) 05/11/25 18:10 Anion Gap 19.7 (5-19) H 05/11/25 18:10 BUN 33 mg/dL (8-23) H 05/11/25 18:10 Creatinine 0.9 mg/dL (0.5-0.9) 05/11/25 18:10 GFR Calculation Not Reportable 05/11/25 18:10 Glucose 276 mg/dL (65-115) H 05/11/25 18:10 Calculated Osmolality 307 mOsm/kg (285-295) H 05/11/25 18:10 Calcium 9.8 mg/dL (8.5-10.5) 05/11/25 18:10 Total Bilirubin 0.3 mg/dL (0.15-1.2) 05/11/25 18:10 AST 14 U/L (0-32) 05/11/25 18:10 ALT 19 U/L (0-33) 05/11/25 18:10 Alkaline Phosphatase 96 U/L (35-105) 05/11/25 18:10 Troponin T Baseline < 6 ng/L (0-10) 05/11/25 18:10 NT-Pro-B Natriuret Pep 357 pg/mL (0-125) H 05/11/25 18:10 Total Protein 7.1 g/dL (6.6-8.7) 05/11/25 18:10 Albumin 4.4 g/dL (3.5-5.2) 05/11/25 18:10 Globulin 2.7 g/dL (1.3-4.6) 05/11/25 18:10 All radiology interpretation(s) finalized by discharge Discharge Plan Discharge Patient Disposition: Home Clinical Impression: Congestive heart failure, Edema Condition: Stable Prescriptions: New furosemide [Lasix] 40 mg tablet 80 mg PO QAM 5 Days Qty: 10 0RF No Action garlic 1,000 mg capsule 1,000 mg PO BID cholecalciferol (vitamin D3) 250 mcg (10,000 unit) capsule 500 mcg PO BID (DME) Upright walker See Rx Instructions .Route .MEDSUPPLY Qty: 1 0RF Rx Instructions: As directed albuterol sulfate [ProAir HFA] 90 mcg/actuation HFA aerosol inhaler 1 inh inhalation QID PRN (Reason: shortness of breath or wheezing) Qty: 8.5 1RF gabapentin 100 mg capsule 100 mg PO TID 90 Days Qty: 270 1RF Rx Instructions: edit will start with 2 tab at noon and supper. Will need early refill (DME) lancets 30 gauge misc See Rx Instructions .ROUTE .MEDSUPPLY Qty: 100 6RF Rx Instructions: once daily potassium chloride 20 mEq tablet extended release 20 meq PO DAILY 90 Days Qty: 90 1RF sitagliptin phosphate 50 mg tablet 50 mg PO DAILY 90 Days Qty: 90 1RF Rx Instructions: 340b plan Pt would like script mailed to her tramadol 50 mg tablet 50 mg PO BID PRN (Reason: pain) 7 Days Qty: 14 0RF insulin glargine [Lantus Solostar U-100 Insulin] 100 unit/mL (3 mL) insulin pen 20 unit SUBCUT QAM 30 Days Qty: 6 2RF budesonide-formoterol [Symbicort] 160-4.5 mcg/actuation HFA aerosol inhaler 2 inh inhalation BID 30 Days Qty: 10.2 0RF amlodipine 10 mg tablet See Rx Instructions .ROUTE .COMPLEX Qty: 90 0RF Dose Instruction: Take 1 tablet by mouth once daily Rx Instructions: Take 1 tablet by mouth once daily glipizide 10 mg tablet See Rx Instructions .ROUTE .COMPLEX Qty: 180 0RF Dose Instruction: Take 1 tablet by mouth twice daily Rx Instructions: Take 1 tablet by mouth twice daily (DME) OneTouch Ultra Test Strip See Rx Instructions .ROUTE .COMPLEX Qty: 100 0RF Dose Instruction: USE 1 STRIP TO CHECK GLUCOSE ONCE DAILY Rx Instructions: USE 1 STRIP TO CHECK GLUCOSE ONCE DAILY furosemide 40 mg tablet 40 mg PO DAILY metoprolol tartrate 100 mg tablet 100 mg PO DAILY Rx Instructions: Take 1 tablet by mouth once daily levothyroxine 125 mcg tablet 125 mcg PO DAILY Rx Instructions: Take 1 tablet by mouth once daily olmesartan 40 mg tablet 40 mg PO DAILY Rx Instructions: Take 1 tablet by mouth once daily Discharge Orders: Discharge ED (Routine); Ordered 05/11/25 Ordered By: Danelle Torres Referrals: Gutierrez Diaz, WEATHERIZATION OPERATIONS MANAGER [Primary Care Provider, Family Practice] Discharge Diet: Usual diet Patient Instructions: Heart Failure (ED), Leg Edema (ED), Opioid Safety, Pain Management, Patient Portal & Katerina Instructions Activity Restrictions/Additional Instructions: If your blood pressure starts getting low or if your edema is completely gone or if you start getting lightheaded go back to your regular daily dose of Lasix. Thank you for choosing [facility] for your healthcare needs today. You have been screened and evaluated and felt safe for discharge. Health conditions do change or evolve sometimes and as such it is important that you follow up with your Primary Doctor to be re checked, 3-5 days is a general good time frame for follow up. You are always welcome to return to the ED for re assessment if your symptoms are worsening or you have new concerns Print Language: Venezuelan Coding Level of Care Code ED Warehouse Order Filler for Manda Gutierrez
[2025-05-11 18:30] VITALS: PULSE 67; O2SAT 99
[2025-05-11 18:36] LABS: Hematocrit 39.1 % (36-47); Hemoglobin 14.20 g/dL (11.27-16.99); Mean Corpuscular HGB Conc 36.3 g/dL (30-55); Mean Corpuscular Hemoglobin 31.6 pg (27-33); Mean Corpuscular Volume 86.9 fl (85-98); Nucleated Red Blood Cells % 0 %; Platelet Count 274 10^3/cmm (157-399); Red Blood Count 4.50 10^6/uL (3.85-5.65); White Blood Count 9.11 10^3/uL (3.29-11.43)
--- NOTE | 2025-05-11 18:43 | ECG_ITS ---
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
[2025-05-11] MEDS: FUROsemide 10 mg/mL SDV 10mL 80 MG IVP (18:46)
[2025-05-11 18:53] LABS: Alanine Aminotransferase 19 U/L (0-33); Albumin Level 4.4 g/dL (3.5-5.2); Alkaline Phosphatase 96 U/L (35-105); Anion Gap 19.7 (5-19); Aspartate Amino Transferase 14 U/L (0-32); Blood Urea Nitrogen 33 mg/dL (8-23); Calcium 9.8 mg/dL (8.5-10.5); Carbon Dioxide 26 mmol/L (22-29); Chloride 99 mmol/L (98-107); Creatinine Clr Calc Pharmacy 62.5612; Globulin 2.7 g/dL (1.3-4.6); Glucose 276 mg/dL (65-115); NT Pro B Type Natriuretic Pept 357 pg/mL (0-125); Osmolality Calculated 307 mOsm/kg (285-295); Potassium 4.7 mmol/L (3.5-5.1); Sodium 140 mmol/L (136-145); Total Protein 7.1 g/dL (6.6-8.7)
[2025-05-11 19:00] VITALS: PULSE 65; O2SAT 94
[2025-05-11 19:02] LABS: Troponin(5th) Baseline < 6 ng/L (0-10)
[2025-05-11 19:57] VITALS: BP 153/84; PULSE 67; O2SAT 95
--- NOTE | 2025-05-11 19:58 | PC.NURSE ---
Pt has been continent of urine and has had approximately 800cc out altogether.
--- OUTSIDE RECORDS SUMMARY | 2025-05-11 22:59 | XMS_ITS | Clinical Summary ---
Author Organization [facility] Address [address] Gallegos: Epic [place] [address] Care Team Providers Care Motor Patrol Operator Name Role Phone Andrea Valerio, MARTHA, Dontae Grace Primary Care Pro vider Allergies No known active allergies Encounters Date Type Department Care Team Description 05/03/2025 External Device Data [facility] Provider, Abstract 04/13/2025 External Device Data [facility] Provider, Abstract 04/12/2025 External Device Data [facility] Provider, Abstract 03/24/2025 Telephone [facility] [address] [place] [id number] Dontae Mendez Sr., FNP Erroneous encounter-disregard 03/22/2025 External Device Data [facility] Provider, Abstract 03/15/2025 External Device Data [facility] Provider, Abstract 02/17/2025 External Device Data [facility] Provider, Abstract 02/16/2025 External Device Data [facility] Provider, Abstract 02/15/2025 External Device Data [facility] Provider, Abstract from Last 3 Months Social History Tobacco Use Types Packs/Day Years Used Date Smoking Tobacco: Never Alcohol Use Standard Drinks/Week Comments No 0 (1 standard drink = 0.6 oz pur e alcohol) Comments Unknown Sex and Gender Information Value Date Recorded Sex Assigned at Not on file Legal Sex Female 3:26 PM CLAY THROWER Gender Identity Not on file Sexual Orientation Not on file Plan of Treatment Health Maintenance Due Date Last Done Comments DTAP/TDAP/TD VACCINES (1 - Tdap) 1969 BREAST CANCER SCREENING 1990 COLORECTAL SCREENING 1995 Colorectal Cancer Screening 1995 FIT-DNA Q 3 years 1995 FIT/FOBT Q 1 year 1995 Flex Sig/CT Colonography Q 5 years 1995 PNEUMOCOCCAL VACCINE 50+ YEARS (1 of 1 - PCV) 07/02/20 00 ZOSTER VACCINE (1 of 2) 2000 OSTEOPOROSIS SCREENING 2015 INFLUENZA VACCINE (#1) 2025 RSV VACCINE (60+ or ) (1 - 1-dose 75+ series) 2025 Insurance [facility] MEDIC[facility] Care Teams Motor Patrol Operator Relationship Specialty Start Date End Date Andrea Valerio, MARTHA Perez [address] [place] [address] PCP - General NURSE PRACTITIONER 03/13/12
--- OUTSIDE RECORDS SUMMARY | 2025-05-11 22:59 | XMS_ITS | Encounter Summary ---
Author Organization [employer] Address [address] [place] [address] Care Team Providers Care Public Health Microbiologist Name Role Phone MARTHA Mendez Sr., Michael Dave Primary Care Pro vider Encounter Details Date Type Department Care Team (Late st Contact Info) Description 05/03/2025 External Device Data [facility] Provider, Abstract NO ADDRESS ON FILE Social History Tobacco Use Types Packs/Day Years Used Date Smoking Tobacco: Never Alcohol Use Standard Drinks/Week Comments No 0 (1 standard drink = 0.6 oz pur e alcohol) Comments Unknown Sex and Gender Information Value Date Recorded Sex Assigned at Not on file Legal Sex Female 3:26 PM PUBLIC FINANCE SPECIALIST Gender Identity Not on file Sexual Orientation Not on file documented as of this encounter Plan of Treatment Not on file documented as of this encounter Visit Diagnoses Not on filedocumented in this encounter Care Teams Public Health Microbiologist Relationship Specialty Start Date End Date Dontae Mendez Sr., FNP [address] [place] [address] PCP - General NURSE PRACTITIONER 03/13/12 documented as of this encounter
--- OUTSIDE RECORDS SUMMARY | 2025-05-11 22:59 | XMS_ITS | Encounter Summary ---
Author Organization [facility] Address [address] [place] [address] Care Team Providers Care Reversing Mill Roller Name Role Phone Andrea Valerio, MARTHA, Dontae Grace Primary Care Pro vider Encounter Details Date Type Department Care Team (Late st Contact Info) Description 03/16/2012 Ancillary Orders [facility] [place] [address] [place] [phone] Ankit Whitten D, DO [address] [place] [address] Injury Social History Tobacco Use Types Packs/Day Years Used Date Smoking Tobacco: Never Alcohol Use Standard Drinks/Week Comments No 0 (1 standard drink = 0.6 oz pur e alcohol) Comments Unknown Sex and Gender Information Value Date Recorded Sex Assigned at Not on file Legal Sex Female 7:09 AM DRAWING CHECKER Gender Identity Not on file Sexual Orientation Not on file Occupation Industry Job Start Date Job End Date Not on file Not on file Not on file Not on file documented as of this encounter Plan of Treatment Not on file documented as of this encounter Results * XR ELBOW 2 VW LEFT (03/13/2012 11:00 PM CDT) Anatomical Region Laterality Modality Upper Extremity Computed Radiogr aphy Impressions 03/18/2012 8:46 AM CDT normal left elbow views jaw - transcribed in Epic - Narrative 03/18/2012 8:46 AM CDT ATTENTION: This replaces accession number [id number]. DESCRIPTION AP and lateral views of the left elbow show no fracture or deformity. No fat pad elevation is seen. Procedure Note Braulio Wylie MD - 03/18/2012 ATTENTION: This replaces accession number [id number]. DESCRIPTION AP and lateral views of the left elbow show no fracture or deformity. No fat pad elevation is seen. IMPRESSION normal left elbow views jaw - transcribed in [facility] - us Ankit Mcwilliams Spolakshmi DO DIAGNOSTIC IMAGING ORDERABLES F inal Result documented in this encounter Visit Diagnoses Diagnosis Injury Injury, other and unspecified, unspecified site Injury Injury, other and unspecified, unspecified site documented in this encounter Care Teams Reversing Mill Roller Relationship Specialty Start Date End Date Andrea Valerio, MARTHA [address] [place] [address] PCP - General NURSE PRACTITIONER 03/13/12 documented as of this encounter
--- OUTSIDE RECORDS SUMMARY | 2025-05-11 22:59 | XMS_ITS | Clinical Summary ---
Author Organization [facility] Address [address] [place] [address] Care Team Providers Care Manufacturing Supervisor 2Nd Shift Name Role Phone Andrea Valerio, MARTHA, Dontae Grace Primary Care Pro vider Allergies No known active allergies Medications losartan (COZAAR) 50 mg Oral tablet Take 50 mg by mouth daily. Active losartan-hydroch lorothiazide (HYZAAR) 100-25 mg Oral tablet Take 1 Tab by mouth daily. Active levothyroxine (SYNTHROID) 125 mcg Oral tablet Take 125 mcg by mouth daily laboratory operations coordinator. Active oxyCODONE-acetam inophen (PERCOCET) 10-325 mg Oral Tab Take 1 Tab by mouth every 4 hours as needed for Pain. 20 Tab 0 03/13/2012 Active HYDROcodone-acet aminophen (NORCO) 5-325 mg Oral tablet Take 1 Tab by mouth every 4 hours as needed for Pain, Moderate. 4 Tab None 03/13/2012 Active Social History Tobacco Use Types Packs/Day Years Used Date Smoking Tobacco: Never Alcohol Use Standard Drinks/Week Comments No 0 (1 standard drink = 0.6 oz pur e alcohol) Comments Unknown Sex and Gender Information Value Date Recorded Sex Assigned at Not on file Legal Sex Female 7:09 AM INFECTION CONTROL PRACTITIONER Gender Identity Not on file Sexual Orientation Not on file Occupation Industry Job Start Date Job End Date Not on file Not on file Not on file Not on file Last Filed Vital Signs Vital Sign Reading Time Taken Comments Blood Pressure 171/92 03/13/2012 11:52 PM CDT Pulse 87 03/13/2012 11:52 PM CDT Temperature 37 C (98.6 F) 03/13/2012 11:52 PM CDT Respiratory Rate 22 03/13/2012 11:52 PM CDT Oxygen Saturation 96% 03/13/2012 11:52 PM CDT Inhaled Oxygen Concentration - - Weight 98 kg (216 lb) 03/13/2012 10:16 PM CDT Height 160 cm (5' 3 ) 03/13/2012 10:16 PM CDT Body Mass Index 38.26 03/13/2012 10:16 PM CDT Plan of Treatment Health Maintenance Due Date [...] (1 - 1-dose 75+ series) 2025 Insurance [employer] DUAL COMPLETE MCR PPO D-SNP Care Teams Manufacturing Supervisor 2Nd Shift Relationship Specialty Start Date End Date Dontae Mendez Sr., FNP [address] [place] [address] PCP - General NURSE PRACTITIONER 03/13/12
== END 2025-05-11 19:58 | disposition home or self-care (01) ==
PROVIDERS: Emergency Medicine; Emergency Provider Emergency Medicine; PCP Registered Nurse
DX: I50.9 Heart failure, unspecified (principal); E11.9 Type 2 diabetes mellitus without complications; Z87.891 Personal history of nicotine dependence; R60.0 Localized edema; Z79.4 Long term (current) use of insulin
CPT/HCPCS: 36415; 71045; 80053; 83880; 84484; 85025; 93005; 96374; 99285; J1938

== ENCOUNTER → 2025-07-21 14:36 | Outpatient (BNVA) | payer MEDICARE, SELFPAY | PROVIDERS: PCP Registered Nurse; Visit Provider Registered Nurse | DX: E11.9 Type 2 diabetes mellitus without complications (principal); E11.43 Type 2 diabetes mellitus with diabetic autonomic (poly)neuropathy | CPT/HCPCS: 80053; 83036 ==

== ENCOUNTER → 2025-08-09 13:08 | Outpatient (BNVA) | payer MEDICARE, SELFPAY | PROVIDERS: PCP Registered Nurse; Visit Provider Physician Assistant | DX: G56.02 Carpal tunnel syndrome, left upper limb (principal); M65.322 Trigger finger, left index finger; M65.332 Trigger finger, left middle finger | CPT/HCPCS: 99214 ==

== ENCOUNTER 2025-08-23 09:28 | Day surgery (SDC) | payer MEDICARE, SELFPAY ==
[2025-08-23] VITALS (7 sets, daily range): BP systolic 133–213; BP diastolic 71–97; PULSE 73–85; RESP 18–22; TEMP 36.6–37; O2SAT 94–100; BMI 40.7
--- NOTE | 2025-08-23 10:33 | W.PM.OPSUD ---
Surgery/Procedure H&P Update DATE OF PROCEDURE: August 23, 2025 DATE H&P PERFORMED: 08/09/25 H&P UPDATE INFORMATION: I have reviewed H&P completed within last 30 days, I have examined patient prior to procedure and No changes to prior documentation PREOP DIAGNOSIS: Left carpal tunnel syndrome, left index trigger, left middle finger trigger PRIMARY INDICATION FOR PROCEDURE: Left carpal tunnel syndrome, left index trigger, left middle finger trigger PLANNED PROCEDURE: Operation Date: 08/23/25 12:15 Proposed Procedures p LEFT Carpal Tunnel Release(Left) - Jimenez Ramirez DO s LEFT Index and LEFT Middle Finger Trigger Finger Release(Left) - Jimenez Ramirez DO
--- NOTE | 2025-08-23 10:42 | ANES.PREANE2 ---
Pre-Anesthetic Assessment Height/Weight: Height 1.6 m Weight 104.326 kg Temp Pulse Resp BP Pulse Ox O2 Del Method 98 F 80 18 213/94 100 Room Air 08/23/25 10:15 08/23/25 10:15 08/23/25 10:15 08/23/25 10:15 08/23/25 10:15 08/23/25 10:19 Preop Diagnosis: Left carpal tunnel syndrome, left index trigger, left middle finger trigger Operation Date: 08/23/25 12:15 Proposed Procedures p LEFT Carpal Tunnel Release(Left) - Jimenez Ashley, DO s LEFT Index and LEFT Middle Finger Trigger Finger Release(Left) - Jimenez Ashley, DO Familial anesthetic complications: None Was Beta Guicho taken within 24 hours: N/A Was Clonidine taken within 24 hours: N/A Last intake: Intake Last Liquid Date 08/22/25 Last Liquid Time 20:00 Last Solid Date 08/22/25 Last Solid Time 20:00 Social No alcohol and No tobacco Exam alert, oriented x 3, clear to auscultation bilaterally and regular rate & rhythm Airway Mallampati: Class III Dentition: false CV/HEM Hypertension Metabolic Diabetes Mellitus, Hyperlipidemia, Morbid Obesity and Thyroid Disease Anesthetic Plan ASA status: 3 Anesthesia: MAC Risk of > 500 ml blood loss (7ml/kg in children): No Medications/Allergies Home Medications ?Medication ?Instructions ?Recorded ?Confirmed ?Last Taken ?Type cholecalciferol (vitamin D3) 250 500 mcg PO DAILY 12/31/22 08/23/25 08/22/25 History mcg (10,000 unit) capsule garlic 1,000 mg capsule 1,000 mg PO BID 12/31/22 08/22/25 08/22/25 History Upright walker #1 ea 01/01/23 08/09/25 Unknown Rx albuterol sulfate 90 mcg/actuation 1 inh inhalation QID PRN shortness 01/27/24 08/22/25 08/22/25 Rx aerosol inhaler (ProAir HFA) of breath or wheezing #8.5 grams lancets 30 gauge #100 ea 11/23/24 08/09/25 Unknown Rx budesonide-formoterol HFA 160 2 inh inhalation BID 30 days #10.2 11/25/24 08/22/25 08/22/25 Rx mcg-4.5 mcg/actuation aerosol grams inhaler (Symbicort) tramadol 50 mg tablet 50 mg PO BID PRN pain 7 days #14 01/18/25 08/22/25 08/22/25 Rx tabs levothyroxine 125 mcg tablet 125 mcg PO DAILY 02/23/25 08/22/25 08/22/25 History metoprolol tartrate 100 mg tablet 100 mg PO DAILY 02/23/25 08/22/25 08/22/25 History furosemide 40 mg tablet 40 mg PO DAILY #90 tabs 07/21/25 08/22/25 08/22/25 Rx gabapentin 100 mg capsule 100 mg PO TID 90 days #270 caps 07/21/25 08/22/25 08/22/25 Rx insulin glargine 100 unit/mL (3 20 unit (0.2 mL) SUBCUT QAM 30 07/21/25 08/22/25 08/22/25 Rx mL) subcutaneous pen (Lan days #6 mL Solostar U-100 Insulin) potassium chloride 20 mEq 20 meq PO DAILY 90 days #90 tabs 07/21/25 08/22/25 08/22/25 Rx tablet,extended release blood sugar diagnostic (OneTouch #100 ea 08/15/25 Unknown Rx Ultra Test strips) flash glucose scanning reader #1 ea 08/18/25 Unknown Rx (FreeStyle Annika 2 Hundred) flash glucose sensor (FreeStyle #2 ea 08/18/25 Unknown Rx Annika 2 Sensor kit) amlodipine 10 mg tablet 10 mg PO DAILY 08/22/25 08/22/25 08/22/25 History glipizide 10 mg tablet 10 mg PO DAILY 08/22/25 08/22/25 08/22/25 History olmesartan 40 mg tablet 40 mg PO DAILY 08/22/25 08/22/25 08/22/25 History sitagliptin phosphate 50 mg tablet 50 mg PO DAILY 08/22/25 08/22/25 08/22/25 History (Januvia) tramadol 50 mg tablet 50 mg PO Q6H PRN pain #20 tabs 08/23/25 Unknown Rx Allergies Allergy/AdvReac Type Severity Reaction Status Date / Time No Known Allergies Allergy Verified 08/09/25 13:18 [facility] Anesthesia Medical History (Updated 08/09/25 @ 13:47 by ALYSSA Sanchez) Chronic diarrhea Type 2 diabetes mellitus without complication, with long-term current use of insulin Social History Smoking and tobacco/nicotine status: former use of tobacco/nicotine Alcohol intake: never Substance/Drug Use: never Adopted: No Caregiver/support person: No Lives independently: No Household members: spouse Sexually active: Yes Do you think of yourself as: Straight/Heterosexual Current gender identity: Female Data Anesthesia Cardiac Studies: Echocardiogram 02/20/24 Sestamibi Stress Test (Cardiology) 02/20/24
[2025-08-23] MEDS: acetaminophen 1,000 MG/100 ML PIGGYBACK 400 MG IV (11:01)
[2025-08-23] MEDS: ceFAZolin 2,000 MG in sodium chloride 0.9% (plus) 50 ML 100 MG IV (11:29)
[2025-08-23] MEDS: ROPivacaine 0.5% SDV 30 mL 50 MG INJECTION (11:53)
[2025-08-23] MEDS: lidocaine-epi 1% 20 mL INJ 5 ML INJECTION (11:54)
--- NOTE | 2025-08-23 12:01 | P.BOP_ITS ---
Date of Procedure: 08/23/2025 Surgeon: Jimenez Ramirez DO Grinder And Plater(s): Salvador Ramirez PA-C Procedure(s) performed: Left carpal tunnel release Left index finger trigger release Left middle finger trigger release Findings of the procedure(s): Patient underwent procedure as planned without issues or complications taken recovery in stable condition. Estimated blood loss: 5 mL Specimen(s) removed: None Post-operative diagnosis: Left carpal tunnel syndrome, left index finger trigger, left middle finger trigger
--- NOTE | 2025-08-23 12:01 | PM.OP ---
Operative Report Date of procedure: August 23, 2025 Surgeon: Jimenez Ramirez DO Concrete Pile Driver Operator: Salvador Ramirez PA-C: PA was necessary for assistance in this case with hand positioning to execute the procedure, retraction and protection of neurovascular structures as well as to assist with wound closure and dressing application. Procedure: Preop Diagnosis: Left Carpal Tunnel Syndrome, left index and middle finger trigger Post-op diagnosis: Same Procedure done: 1. Left carpal tunnel release 2. Left index finger trigger release 3. Left middle finger trigger release Surgeon: Jimenez Ramirez DO Anesthesia: MAC (Local) Estimated blood loss: [5]mL Tourniquet time [10]minutes IV fluids: 300 mL Complications: None Findings: See operative report narrative Condition: stable Disposition: same day Brief History: Patient is a pleasant [75]year-old [female] with left carpal tunnel syndrome and left index and middle finger triggers. Patient has been worked up in the outpatient setting findings and physical examination consistent with this. Patient nerve conduction studies consistent with carpal tunnel syndrome. We detailed out patient's risk benefits complication alternatives with surgical and nonsurgical treatment options. Through shared decision making, patient agrees to proceed with surgical intervention of the left carpal tunnel release and left index finger trigger release and left middle finger trigger release. Patient understands and agrees with current plan. All questions answered. Patient elects to proceed with surgical intervention. Procedure: Patient seen and evaluated in the preoperative holding area. Consent was reviewed and signed with patient. Correct extremity was marked. Patient was seen evaluated by the anesthesia department once cleared for surgery was brought back to the operative suite. Patient was kept on [facility] in supine position all bony prominences were well-padded patient properly secured to the bed. Left upper extremity was then placed onto an armboard. A nonsterile tourniquet was applied to the left upper arm. Patient underwent anesthesia per the anesthesia department. Patient's left upper extremity was then prepped and draped in standard orthopedic fashion. Final timeout performed. Patient received appropriate preoperative antibiotics. Under sterile aseptic technique patient received local anesthesia over the preplanned carpal tunnel incision site as well as digital blocks performed to the left index and middle finger for the trigger releases. Esmarch was used to exsanguinate the left upper extremity and tourniquet was insufflated to 250 mmHg. A standard mini open left carpal tunnel incision was made. Starting distally at Vyas's cardinal line in line with the fourth ray extending proximally distal to the wrist crease centered over the carpal tunnel. Sharp scalpel incision was made through skin and subcutaneous tissue. Self-retaining retractor was placed and the palmar fascia was identified. This was then split longitudinally and direct visualization of the transverse carpal ligament was then made. I then utilizing scalpel feathered through the transverse carpal ligament until I entered the floor of the transverse carpal tunnel ligament into the carpal tunnel. Next I switched to dissection scissors and completed my release of the transverse carpal ligament distally with care to protect the recurrent motor branch. I completely released into the palmar fat and until no entrapment was noted distally. Care was made to protect the superficial palmar arch during my distal dissection. Next, nasal speculum placed proximally for retraction of soft tissue on top of the Transverse carpal ligament. Next the contents of the carpal tunnel where protected and and subsequently utilizing dissection scissors under loupe magnification completely released the transverse carpal ligament proximally into the antebrachial fascia. Care was made to protect the palmar cutaneous branch by keeping my scissors curved ulnarly. Once completely released, I then placed my [place] and had appropriate decompression of the carpal tunnel proximally as well as distally. I then inspected the contents of the carpal tunnel which showed an hourglass shape of the median nerve showing its compression. No masses were noted. Tendons appeared healthy. Wound was then thoroughly irrigated. Next I then proceeded with the left index finger trigger release Once appropriately anesthetized a standard longitudinal incision was made centering over the A1 wolfgang following patient's flexor crease of left index finger.? Sharp scalpel incision was made only through skin and then switched to Littler dissection scissors and spread longitudinally directly over the flexor tendon sheath.? I then mobilized both radially and ulnarly and Kasdan retractors were used and placed by my farm assistant to protect neurovascular bundle.? Next I visualized the A1 wolfgang and this was incised with a scalpel.? I then switched to dissection scissors and released the A1 wolfgang both proximally as well as distally to its entirety up to A2.? Significant tendon sheath fluid was noted consistent with inflammation. No tendon tear.? At this point I utilized a rag nail and pulled the tendons FDS and FDP out of the incision and no?triggering was noted.? This completed the left index finger trigger release I then subsequently proceeded with a left middle finger trigger release. Once appropriately anesthetized a standard oblique incision was made centering over the A1 wolfgang following patient's flexor crease of left middle finger.? Sharp scalpel incision was made only through skin and then switched to Littler dissection scissors and spread longitudinally directly over the flexor tendon sheath.? I then mobilized both radially and ulnarly and Kasdan retractors were used and placed by my farm assistant to protect neurovascular bundle.? Next I visualized the A1 wolfgang and this was incised with a scalpel.? I then switched to dissection scissors and released the A1 wolfgang both proximally as well as distally to its entirety.? Significant tendon sheath fluid was noted consistent with inflammation.? No tendon tear.? At this point I utilized a rag nail and pulled the tendons FDS and FDP out of the incision and no?triggering was noted.? I then had anesthesia wake up the patient and patient was able to actively flex and extend all digits with no?triggering.? This point thorough irrigation was performed.? Tourniquet deflated. Hemostasis satisfactory with bipolar electrocautery. I then closed the incisions with interrupted nylon stitches. Xeroform 4 x 4's and a bulky soft dressing was applied to the left upper extremity. Patient was then awakened from anesthesia and taken to PACU in stable condition. Patient tolerated procedure without complications. Disposition: Patient taken to PACU in stable condition recovering well. Dressing clean dry and intact. Patient will receive appropriate discharge instructions as well as pain medication postoperatively. Patient to follow-up with me in the office in 2 weeks. They understand they may be weightbearing as tolerated to the left hand but limit heavy lifting. Patient should keep incision clean dry and intact. Patient understands if any questions or concerns may contact the office.
--- NOTE | 2025-08-23 13:15 | ANE.PACU2 ---
Inpatient post-anesthesia follow up: Airway intact: Yes Vital signs: Temperature 98.6 F Pulse Rate 73 Respiratory Rate 18 Blood Pressure 168/77 Pulse Oximetry 96 Oxygen Delivery Me thod Room Air Oxygen Flow Rate Fraction of Inspir ed Oxygen Hydration adequate: Yes Nausea and vomiting: No Pain level: 1 Mental status: Baseline
== END 2025-08-23 13:15 | disposition home or self-care (01) ==
PROVIDERS: PCP Registered Nurse; Visit Provider Student in an Organized Health Care Education/Training Program
PROC: (CPT 64721; principal; 2025-08-23 12:15)
PROC: (CPT 64721; 2025-08-23 12:15)
DX: G56.02 Carpal tunnel syndrome, left upper limb (principal); M65.322 Trigger finger, left index finger; M65.332 Trigger finger, left middle finger; I10 Essential (primary) hypertension; E11.9 Type 2 diabetes mellitus without complications; E78.5 Hyperlipidemia, unspecified; E66.01 Morbid (severe) obesity due to excess calories; Z68.41 Body mass index [BMI] 40.0-44.9, adult; E07.9 Disorder of thyroid, unspecified; Z87.891 Personal history of nicotine dependence; Z79.4 Long term (current) use of insulin
CPT/HCPCS: 64721; 26055 ×2; 36416; 82962; J0131; J0690; J2250; J2704; J2795; J3010; J7030; J9999

== ENCOUNTER 2025-09-11 21:56 | Emergency (ER) | payer MEDICARE, SELFPAY ==
[2025-09-11 21:47] VITALS: BP 211/89; PULSE 74; RESP 16; TEMP 37.1; O2SAT 100; BMI 39.4
--- OUTSIDE RECORDS SUMMARY | 2025-09-11 22:01 | XMS_ITS | Encounter Summary ---
Author Organization [facility] Address [address] [place] [address] Care Team Providers Care Watershed Program Manager Name Role Phone Andrea Valerio, MARTHA, Dontae Grace Primary Care Pro vider Encounter Details Date Type Department Care Team (Late st Contact Info) Description 03/16/2012 Ancillary Orders Attentive.ly Wiley [address] [place] [id number] Ankit Whitten D, DO [address] [place] [address] Injury Social History Tobacco Use Types Packs/Day Years Used Date Smoking Tobacco: Never Alcohol Use Standard Drinks/Week Comments No 0 (1 standard drink = 0.6 oz pur e alcohol) Comments Unknown Sex and Gender Information Value Date Recorded Sex Assigned at Not on file Legal Sex Female 7:09 AM PROJECT DESIGNER Gender Identity Not on file Sexual Orientation [...] AM CDT ATTENTION: This replaces accession number [id number]. DESCRIPTION AP and lateral views of the left elbow show no fracture or deformity. No fat pad elevation is seen. Procedure Note Braulio Wylie MD - 03/18/2012 ATTENTION: This replaces accession number [id number]. DESCRIPTION AP and lateral views of the left elbow show no fracture or deformity. No fat pad elevation is seen. IMPRESSION normal left elbow views jaw - transcribed in [facility] - us Ankit Mcwilliams Spolakshmi DO DIAGNOSTIC IMAGING ORDERABLES F inal Result documented in this encounter Visit Diagnoses Diagnosis Injury Injury, other and unspecified, unspecified site Injury Injury, other and unspecified, unspecified site documented in this encounter Care Teams Watershed Program Manager Relationship Specialty Start Date End Date Andrea Valerio, MARTHA [address] [place] [address] PCP - General NURSE PRACTITIONER 03/13/12 documented as of this encounter
--- OUTSIDE RECORDS SUMMARY | 2025-09-11 22:01 | XMS_ITS | Clinical Summary ---
Author Organization [facility] Address [address] [facility] Attn: [place] [address] Care Team Providers Care Manager Beverage Name Role Phone Andrea Valerio, MARTHA, Dontae Grace Primary Care Pro vider Allergies No known active allergies Encounters Date Type Department Care Team Description 07/20/2025 External Device Data ST[facility] ABSTRACTION Provider, Abstract 07/19/2025 External Device Data [facility] ABSTRACTION Provider, Abstract 06/21/2025 External Device Data ST[facility] ABSTRACTION Provider, Abstract 06/14/2025 External Device Data ST[facility] ABSTRACTION Provider, Abstract from Last 3 Months Social History Tobacco Use Types Packs/Day Years Used Date Smoking Tobacco: Never Alcohol Use Standard Drinks/Week Comments No 0 (1 standard drink = 0.6 oz pur e alcohol) Comments Unknown Sex and Gender Information Value Date Recorded Sex Assigned at Not on file Legal Sex Female 3:26 PM JD EDWARDS DEVELOPER Gender Identity Not on file Sexual Orientation Not on file Plan of Treatment Health Maintenance Due Date Last Done Comments DTAP/TDAP/TD VACCINES (1 - Tdap) 1969 COLORECTAL SCREENING 1995 Colorectal Cancer Screening 1995 FIT-DNA Q 3 years 1995 FIT/FOBT Q 1 year 1995 Flex Sig/CT Colonography Q 5 years 1995 PNEUMOCOCCAL VACCINE 50+ YEARS (1 of 1 - PCV) 07/02/20 00 ZOSTER VACCINE (1 of 2) 2000 OSTEOPOROSIS SCREENING 2015 INFLUENZA VACCINE (#1) 2025 RSV VACCINE (60+ or ) (1 - 1-dose 75+ series) 2025 Insurance [facility] MEDICARE Care Teams Manager Beverage Relationship Specialty Start Date End Date Andrea Valerio, MARTHA Perez [address] [place] [address] PCP - General NURSE PRACTITIONER 03/13/12
--- OUTSIDE RECORDS SUMMARY | 2025-09-11 22:01 | XMS_ITS | Clinical Summary ---
Author Organization [facility] Address [address] [place] [address] Care Team Providers Care Manager Wastewater Name Role Phone Andrea Valerio, MARTHA, Dontae Grace Primary Care Pro vider Allergies No known active allergies Medications losartan (COZAAR) 50 mg Oral tablet Take 50 mg by mouth daily. Active losartan-hydroch lorothiazide (HYZAAR) 100-25 mg Oral tablet Take 1 Tab by mouth daily. 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
--- NOTE | 2025-09-11 22:08 | ECG_ITS ---
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 Measurements Intervals [place] Rate: 70 P: 83 VA: 204 QRS: 37 QRSD: 75 T: 51 QT: 382 QTc: 414 Interpretive Statements SINUS RHYTHM Compared to ECG 05/11/2025 18:43:12 Ectopic atrial rhythm no longer present Myocardial infarct finding no longer present Electronically Signed On 09-14-2025 21:45:10 CARD STRIPPER by Milagro Pardo M.D. [email or web address]
--- NOTE | 2025-09-11 22:17 | XRR_ITS ---
PROCEDURE INFORMATION: Exam: XR Chest Exam date and time: 09/11/2025 10:23 PM Age: 75 years old Clinical indication: Shortness of breath; C/O SOB. History of chf. TECHNIQUE: Imaging protocol: Radiologic exam of the chest. Views: 1 view. Total images: 1 COMPARISON: 1. CR XR chest 1V portable [id number] 05/11/2025 5:[address] abdomen pelvis w con* [id number] 07/09/2021 6:43 PM FINDINGS: Lungs: Pulmonary vasculature; normal caliber. No lung consolidation, mass, or acute pulmonary abnormality identified. Pleural spaces: No pathologic pleural thickening, significant pleural effusion or pneumothorax. Heart/Mediastinum: Normal heart size. Vasculature: Aorta moderate atherosclerotic calcification. Bones/joints: Moderate generalized degenerative changes of the vertebral column, including multilevel osteophytes, degenerative disc height loss, and facet arthrosis, consistent with patient age. Shoulder glenohumeral mild osteoarthritis. Acromioclavicular joint mild chronic degenerative arthrosis. Qualitative demineralization of bones (osteopenia) limiting evaluation for nondisplaced fractures. Soft tissues: Soft tissues are normal as visualized, demonstrating no masses or swelling/induration. XR/XR chest 1V portable [id number] IMPRESSION: 1. No new acute cardiopulmonary disease or adverse interval change radiographically. 2. Moderate age-appropriate degenerative spinal changes. Other chronic/non-acute findings as described above. COMMENTS: Qualitative demineralization of bones (osteopenia) limiting evaluation for nondisplaced fractures.
--- NOTE | 2025-09-11 22:17 | ECG_ITS ---
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 Measurements Intervals [place] Rate: 71 P: -86 MT: 127 QRS: 37 QRSD: 80 T: 54 QT: 389 QTc: 425 Interpretive Statements Multifocal atrial rhythm LOW QRS VOLTAGE IN PRECORDIAL LEADS [QRS DEFLECTION < 1.0 mV IN CHEST LEADS] SEPTAL MYOCARDIAL INFARCTION , OF INDETERMINATE AGE [40+ ms Q WAVE IN V1/V2] Compared to ECG 05/11/2025 18:43:12 Junctional rhythm now present Ectopic atrial rhythm no longer present Myocardial infarct finding still present Electronically Signed On 09-13-2025 21:56:00 GLOBAL PROFESSIONAL by Milagro Pardo M.D. [email or web address]
--- NOTE | 2025-09-11 22:17 | W.ED.SOB ---
HPI - SOB/Dyspnea General: Chief Complaint: Shortness of Breath/Dyspnea Stated Complaint: SOB Time Seen by Provider: 09/11/25 22:08 Source: patient Mode of arrival: EMS Limitations: no limitations History of Present Illness: HPI Narrative: Patient is a 75-year-old female with a history of hypertension, diabetes, thyroid disease, obesity with a BMI of 39.5, hyperlipidemia, chronic dyspnea here via EMS with a complaint of dyspnea-mainly only occuring at night. Patient feels like this has been an ongoing issue for 2-3 years. She feels like it is worse at night. She states she has received a diagnosis of congestive heart failure through her primary care provider. She did, at one point, see a draw fire operator for a second opinion reportedly did not like him so never went back. She has had an echocardiogram performed 01/2024 with results as follows: CONCLUSIONS Normal left ventricular size and systolic function, EF 55% . Mild left ventricular hypertrophy. Grade I/IV diastolic dysfunction (abnormal relaxation filling pattern), normal to mildly elevated filling pressures. Moderate mitral annular calcification. Trace to mild tricuspid valve regurgitation. Estimated pulmonary artery peak systolic pressure 22 mmHg. There is no pericardial effusion. There are no intracardiac masses. Compared to the study from 06/07/2018, there may not be a significant change She does take Lasix daily to help with leg swelling. She has been referred to pulmonology for further evaluation of her chronic shortness of breath. She is satting 97-100% on RA during my examination with her. No recent illness. No URI like symptoms. She has had a sleep study showing sleep apnea but refuses to wear her machine stating it made symptoms worse. MD elicited complaint: shortness of breath Pertinent past history: congestive heart failure Onset (ago): year(s) Timing: constant Severity: moderate Exacerbating factors: lying flat Relieving factors: upright position Known history of: congestive heart failure Associated symptoms: Reports no associated symptoms and orthopnea; Deny abdominal pain, chest congestion, chest pain, dizziness, extremity pain, fever(s), lightheadedness, nausea, palpitations, syncope or vomiting Treatment prior to arrival: none Related Data Home Medications ?Medication ?Instructions ?Recorded ?Confirmed cholecalciferol (vitamin D3) 250 500 mcg PO DAILY 12/31/22 09/08/25 mcg (10,000 unit) capsule garlic 1,000 mg capsule 1,000 mg PO BID 12/31/22 09/08/25 levothyroxine 125 mcg tablet 125 mcg PO DAILY 02/23/25 09/08/25 metoprolol tartrate 100 mg tablet 100 mg PO DAILY 02/23/25 09/08/25 amlodipine 10 mg tablet 10 mg PO DAILY 08/22/25 09/08/25 glipizide 10 mg tablet 10 mg PO DAILY 08/22/25 09/08/25 olmesartan 40 mg tablet 40 mg PO DAILY 08/22/25 09/08/25 sitagliptin phosphate 50 mg tablet 50 mg PO DAILY 08/22/25 09/08/25 (Januvia) Previous Rx's ?Medication ?Instructions ?Recorded Upright walker #1 ea 01/01/23 albuterol sulfate 90 mcg/actuation 1 inh inhalation QID PRN shortness 01/27/24 aerosol inhaler (ProAir HFA) of breath or wheezing #8.5 grams lancets 30 gauge #100 ea 11/23/24 budesonide-formoterol HFA 160 2 inh inhalation BID 30 days #10.2 11/25/24 mcg-4.5 mcg/actuation aerosol grams inhaler (Symbicort) tramadol 50 mg tablet 50 mg PO BID PRN pain 7 days #14 01/18/25 tabs furosemide 40 mg tablet 40 mg PO DAILY #90 tabs 07/21/25 gabapentin 100 mg capsule 100 mg PO TID 90 days #270 caps 07/21/25 potassium chloride 20 mEq 20 meq PO DAILY 90 days #90 tabs 07/21/25 tablet,extended release blood sugar diagnostic (OneTouch #100 ea 08/15/25 Ultra Test strips) flash glucose scanning reader #1 ea 08/18/25 (FreeStyle Annika 2 Holder) flash glucose sensor (FreeStyle #2 ea 08/18/25 Annika 2 Sensor kit) tramadol 50 mg tablet 50 mg PO Q6H PRN pain #20 tabs 08/23/25 insulin glargine 100 unit/mL (3 35 unit (0.35 mL) SUBCUT QAM 30 09/08/25 mL) subcutaneous pen (Lantus days #10.5 mL Solostar U-100 Insulin) Allergies Allergy/AdvReac Type Severity Reaction Status Date / Time No Known Allergies Allergy Verified 09/08/25 14:37 Review of Systems Const: Denies: fever(s), chills, body aches, fatigue or malaise Card: Reports: orthopnea; Denies: chest pain, palpitations, irregular heart rhythm, lightheadedness, syncope, pre-syncope, leg pain with exertion or acrocyanosis Resp: Reports: dyspnea; Denies: productive cough, non-productive cough, wheezing, stridor, pain on inspiration or chest congestion GI: Denies: abdominal pain, nausea, vomiting or diarrhea : Denies: flank pain, dysuria or hematuria Musc: Reports: extremity swelling (chronic-not worsening); Denies: neck pain, back pain, extremity pain, joint pain, joint swelling or joint redness Skin/Breast: Denies: rash Neuro: Denies: headache(s), numbness in extremities, weakness in extremities, sensory changes or dizziness PFSH ED PFSH: Medical History Chronic diarrhea Type 2 diabetes mellitus without complication, with long-term current use of insulin Social History Smoking and tobacco/nicotine status: former use of tobacco/nicotine Alcohol intake: never Substance/Drug Use: never Adopted: No Caregiver/support person: No Lives independently: No Household members: spouse Sexually active: Yes Do you think of yourself as: Straight/Heterosexual Current gender identity: Female Physical Exam Const: COMMON NORMALS: no acute distress, patient oriented x3, no limitations, alert and well nourished GENERAL APPEARANCE: cooperative NUTRITIONAL APPEARANCE: obese ORIENTATION/CONSCIOUSNESS: Yes awake, Yes oriented to person, Yes oriented to place and Yes oriented to time HENMT: COMMON NORMALS: normocephalic and atraumatic HEAD & SCALP: normal to inspection, normocephalic and atraumatic Neck/C-Spine: COMMON NORMALS: no JVD Chest: COMMONS NORMALS: normal inspection of the chest and normal palpation of entire chest wall Resp: COMMON NORMALS: normal respiratory effort and clear to auscultation bilaterally AUSCULTATION: clear to auscultation bilaterally Cardio: COMMON NORMALS: no JVD, regular rate and regular rhythm RATE: regular rate RHYTHM: regular rhythm Extremity: NARRATIVE EXTREMITY EXAM: bilateral symmetrical non-pitting edema GENERAL: Yes normal exam except as noted Neuro: COMMON NORMALS: patient oriented x3, moves all extremities, no focal motor deficits and no sensory deficits noted SENSORIUM/ORIENTATION: Yes alert, Yes oriented to person, Yes oriented to place and Yes oriented to time Skin: COMMON NORMALS: no rashes or lesions noted GENERAL SKIN EXAM: no rashes or lesions noted Course Vital Signs: Vital signs: Vital Signs Temperature 98.8 F 09/11/25 21:47 Pulse Rate 75 09/11/25 23:03 Respiratory Rate 15 09/11/25 23:03 Blood Pressure 186/88 09/11/25 23:03 Pulse Oximetry 94 09/11/25 23:03 Oxygen Delivery Me thod Room Air 09/11/25 21:47 MDM - SOB/Dyspnea Medical Decision Making DDx: Pulmonary embolism, pneumonia, pneumothorax, COPD/asthma/emphysema, interstitial lung disease, viral URI, hypoventilation associated with obesity, congestive heart failure, sleep apnea, anxiety, among others. Patient is satting anywhere from 97 to 100% on room air during my examination. She is not requiring oxygen. Blood work consisting of a CBC, CMP, BNP, troponin are all unremarkable. Her CXR showing no new acute cardiopulmonary disease. She does not clinically appear fluid overloaded. I do not see any evidence at this time for life-threatening etiology for her dyspnea. Plan will be for her to follow-up with primary care and pulmonology-this is reportedly scheduled for 10/04. Return precautions discussed. Differential Diagnosis Likely acute exacerbation of chronic obstructive airways disease, congestive heart failure, community acquired pneumonia, asthma with exacerbation and pulmonary embolism Medical Records I reviewed the patient's medical records. Lab Data I reviewed the patient's lab results. 09/11/25 22:49 09/11/25 22:49 Labs/Radiology: Radiology Impressions Chest X-Ray 09/11/25 22:17 IMPRESSION: 1. No new acute cardiopulmonary disease or adverse interval change radiographically. 2. Moderate age-appropriate degenerative spinal changes. Other chronic/non-acute findings as described above. COMMENTS: Qualitative demineralization of bones (osteopenia) limiting evaluation for nondisplaced fractures. Laboratory Results WBC 9.29 10^3/uL (3.29-11.43) 09/11/25 22:49 RBC 4.54 10^6/uL (3.85-5.65) 09/11/25 22:49 Hgb 13.80 g/dL (11.27-16.99) 09/11/25 22:49 Hct 40.6 % (36-47) 09/11/25 22:49 MCV 89.4 fl (85-98) 09/11/25 22:49 MCH 30.4 pg (27-33) 09/11/25 22:49 MCHC 34.0 g/dL (30-55) 09/11/25 22:49 RDW 13.0 % (12.1-15.1) 09/11/25 22:49 Plt Count 253 10^3/cmm (157-399) 09/11/25 22:49 MPV 10.1 fL (7.4-10.4) 09/11/25 22:49 Neut % (Auto) 65.4 % 09/11/25 22:49 Lymph % (Auto) 26.3 % 09/11/25 22:49 [place] % (Auto) 6.5 % 09/11/25 22:49 Eos % (Auto) 1.1 % 09/11/25 22:49 Baso % (Auto) 0.5 % 09/11/25 22:49 Neut # (Auto) 6.08 10^3/uL (1.8-7.7) 09/11/25 22:49 Lymph # (Auto) 2.4 10^3/uL (0.8-4.8) 09/11/25 22:49 [place] # (Auto) 0.6 10^3/uL (0.2-0.9) 09/11/25 22:49 Eos # (Auto) 0.1 10^3/uL (0.0-0.8) 09/11/25 22:49 Baso # (Auto) 0.1 10^3/uL (0.0-0.1) 09/11/25 22:49 Nucleated RBC % (auto) 0 % 09/11/25 22:49 Nucleated RBCs # 0.0 /100WBC 09/11/25 22:49 Sodium 136 mmol/L (136-145) 09/11/25 22:49 Potassium 3.9 mmol/L (3.5-5.1) 09/11/25 22:49 Chloride 96 mmol/L (98-107) L 09/11/25 22:49 Carbon Dioxide 25 mmol/L (22-29) 09/11/25 22:49 Anion Gap 18.9 (5-19) 09/11/25 22:49 BUN 26 mg/dL (8-23) H 09/11/25 22:49 Creatinine 1.0 mg/dL (0.5-0.9) H 09/11/25 22:49 GFR Calculation Not Reportable 09/11/25 22:49 Glucose 206 mg/dL (65-115) H 09/11/25 22:49 Calculated Osmolality 293 mOsm/kg (285-295) 09/11/25 22:49 Calcium 9.8 mg/dL (8.5-10.5) 09/11/25 22:49 Total Bilirubin 0.4 mg/dL (0.15-1.2) 09/11/25 22:49 AST 21 U/L (0-32) 09/11/25 22:49 ALT 20 U/L (0-33) 09/11/25 22:49 Alkaline Phosphatase 106 U/L (35-105) H 09/11/25 22:49 NT-Pro-B Natriuret Pep 305 pg/mL (0-450) 09/11/25 22:49 Total Protein 7.5 g/dL (6.6-8.7) 09/11/25 22:49 Albumin 4.4 g/dL (3.5-5.2) 09/11/25 22:49 Globulin 3.1 g/dL (1.3-4.6) 09/11/25 22:49 Procalcitonin 0.07 ng/mL (0-0.5) 09/11/25 22:49 All radiology interpretation(s) finalized by discharge Discharge Plan Discharge Patient Disposition: Home Clinical Impression: Chronic dyspnea Condition: Stable Prescriptions: No Action garlic 1,000 mg capsule 1,000 mg PO BID cholecalciferol (vitamin D3) 250 mcg (10,000 unit) capsule 500 mcg PO DAILY (DME) Upright walker See Rx Instructions .Route .MEDSUPPLY Qty: 1 0RF Rx Instructions: As directed albuterol sulfate [ProAir HFA] 90 mcg/actuation HFA aerosol inhaler 1 inh inhalation QID PRN (Reason: shortness of breath or wheezing) Qty: 8.5 1RF furosemide 40 mg tablet 40 mg PO DAILY Qty: 90 0RF gabapentin 100 mg capsule 100 mg PO TID 90 Days Qty: 270 1RF potassium chloride 20 mEq tablet extended release 20 meq PO DAILY 90 Days Qty: 90 1RF (DME) lancets 30 gauge misc See Rx Instructions .ROUTE .MEDSUPPLY Qty: 100 6RF Rx Instructions: once daily tramadol 50 mg tablet 50 mg PO BID PRN (Reason: pain) 7 Days Qty: 14 0RF insulin glargine [Lantus Solostar U-100 Insulin] 100 unit/mL (3 mL) insulin pen 35 unit SUBCUT QAM 30 Days Qty: 10.5 2RF budesonide-formoterol [Symbicort] 160-4.5 mcg/actuation HFA aerosol inhaler 2 inh inhalation BID 30 Days Qty: 10.2 0RF (DME) OneTouch Ultra Test Strip See Rx Instructions .ROUTE .COMPLEX Qty: 100 0RF Dose Instruction: USE 1 STRIP TO CHECK GLUCOSE ONCE DAILY Rx Instructions: USE 1 STRIP TO CHECK GLUCOSE ONCE DAILY (DME) FreeStyle Annika 2 Sensor Kit See Rx Instructions .MEDSUPPLY Qty: 2 11RF Rx Instructions: Change every 14 days; Use as directed to check blood sugar (DME) FreeStyle Annika 2 Holder Misc See Rx Instructions .MEDSUPPLY Qty: 1 0RF Rx Instructions: Use as directed to check blood sugar Pt on insulin metoprolol tartrate 100 mg tablet 100 mg PO DAILY Rx Instructions: Take 1 tablet by mouth once daily levothyroxine 125 mcg tablet 125 mcg PO DAILY Rx Instructions: Take 1 tablet by mouth once daily glipizide 10 mg tablet 10 mg PO DAILY Rx Instructions: Take 1 tablet by mouth twice daily amlodipine 10 mg tablet 10 mg PO DAILY Rx Instructions: Take 1 tablet by mouth once daily olmesartan 40 mg tablet 40 mg PO DAILY Rx Instructions: Take 1 tablet by mouth once daily Januvia 50 mg tablet 50 mg PO DAILY Rx Instructions: TAKE 1 TABLET BY MOUTH EVERY DAY tramadol 50 mg tablet 50 mg PO Q6H PRN (Reason: pain) Qty: 20 0RF Discharge Orders: Discharge ED (Routine); Ordered 09/12/25 Ordered By: Alicia Cespedes Referrals: Joe,Laurica, PATIENT SAFETY SITTER [Primary Care Provider, Family Practice] Patient Instructions: Patient Portal & Katerina Instructions Activity Restrictions/Additional Instructions: As we discussed, please follow-up with pulmonology in a few weeks as scheduled for further evaluation into your nocturnal dyspnea. Print Language: Azeri Coding Level of Care Code ED Apple Picker for Manda Gutierrez
[2025-09-11 22:19] VITALS: BP 211/89; PULSE 81; RESP 25; O2SAT 96
[2025-09-11 22:39] VITALS: BP 177/84; PULSE 70; RESP 18; O2SAT 98
[2025-09-11 22:55] LABS: Hematocrit 40.6 % (36-47); Hemoglobin 13.80 g/dL (11.27-16.99); Mean Corpuscular HGB Conc 34.0 g/dL (30-55); Mean Corpuscular Hemoglobin 30.4 pg (27-33); Mean Corpuscular Volume 89.4 fl (85-98); Nucleated Red Blood Cells % 0 %; Platelet Count 253 10^3/cmm (157-399); Red Blood Count 4.54 10^6/uL (3.85-5.65); White Blood Count 9.29 10^3/uL (3.29-11.43)
[2025-09-11 23:03] VITALS: BP 186/88; PULSE 75; RESP 15; O2SAT 94
[2025-09-11 23:31] LABS: NT Pro B Type Natriuretic Pept 305 pg/mL (0-450); Procalcitonin 0.07 ng/mL (0-0.5)
[2025-09-11 23:42] LABS: Alanine Aminotransferase 20 U/L (0-33); Albumin Level 4.4 g/dL (3.5-5.2); Alkaline Phosphatase 106 U/L (35-105); Blood Urea Nitrogen 26 mg/dL (8-23); Calcium 9.8 mg/dL (8.5-10.5); Carbon Dioxide 25 mmol/L (22-29); Chloride 96 mmol/L (98-107); Globulin 3.1 g/dL (1.3-4.6); Glucose 206 mg/dL (65-115); Osmolality Calculated 293 mOsm/kg (285-295); Sodium 136 mmol/L (136-145); Total Protein 7.5 g/dL (6.6-8.7)
[2025-09-11 23:43] LABS: Anion Gap 18.9 (5-19); Aspartate Amino Transferase 21 U/L (0-32); Potassium 3.9 mmol/L (3.5-5.1)
[2025-09-11] MEDS: labetalol 5 mg/mL SDV 20mL 10 MG IVP (23:55)
[2025-09-12 00:24] VITALS: BP 164/90; PULSE 18; RESP 84; O2SAT 97
== END 2025-09-12 00:39 | disposition home or self-care (01) ==
PROVIDERS: Emergency Provider Physician Assistant; PCP Registered Nurse
DX: R06.09 Other forms of dyspnea (principal); Z79.4 Long term (current) use of insulin; Z87.891 Personal history of nicotine dependence; E11.9 Type 2 diabetes mellitus without complications; I11.0 Hypertensive heart disease with heart failure; I50.9 Heart failure, unspecified; E78.5 Hyperlipidemia, unspecified
CPT/HCPCS: 71045; 80053; 83880; 84145; 85025; 93005; 96374; 99285; J3490